=== PATIENT | male | born 1945 | race Caucasian/White ===

== ENCOUNTER → 2016-10-21 | Outpatient (CLI) | payer MEDICARE, OTHER ==
[2016-10-21 11:04] LABS: CH 29.7; CHCM 33.2; HCT 44.7 % (39.0-53.0); HDW 2.66; HGB 14.7 gm/dL (13.0-17.5); MCH 29.5 pg (25.0-35.0); MCHC 32.9 g/dL (31.0-37.0); MCV 89.6 fL (80.0-100.0); Mean Platelet Volume 7.5; RBC 4.99 m/uL (4.30-5.90); RDW 12.2 % (11.5-15.5); WBC 7.3 k/uL (3.8-10.6)
[2016-10-21 11:19] LABS: Anion Gap 10 mmol/L; Blood Urea Nitrogen 33 mg/dL (9-20); Carbon Dioxide 27 mmol/L (22-30); Chloride 100 mmol/L (98-107); Non-African American GFR(MDRD) 55 (>60 ml/min/1.73 sqM); Sodium 137 mmol/L (137-145)
[2016-10-21 11:28] LABS: Potassium 6.2 mmol/L (3.5-5.1)
== END | disposition home or self-care (01) ==
LOC: LABPAT 10:25
PROVIDERS: ATTEND Internal Medicine Interventional Cardiology
DX: Z01.812 Encounter for preprocedural laboratory examination (principal); I73.9 Peripheral vascular disease, unspecified
CPT/HCPCS: 36415; 80051; 82565; 84520; 85027

== ENCOUNTER → 2016-10-24 | Outpatient (CLI) | payer MEDICARE, OTHER ==
[2016-10-24 17:30] LABS: Anion Gap 11 mmol/L; Blood Urea Nitrogen 24 mg/dL (9-20); Carbon Dioxide 26 mmol/L (22-30); Chloride 102 mmol/L (98-107); Non-African American GFR(MDRD) 60 (>60 ml/min/1.73 sqM); Potassium 4.7 mmol/L (3.5-5.1); Sodium 139 mmol/L (137-145)
== END | disposition home or self-care (01) ==
LOC: LABWHC1 16:17
PROVIDERS: ATTEND Internal Medicine Interventional Cardiology
DX: E87.5 Hyperkalemia (principal)
CPT/HCPCS: 36415; 80051; 82565; 84520

== ENCOUNTER 2016-10-28 09:52 | Day surgery (SDC) | payer MEDICARE, OTHER ==
[2016-10-21 16:41] VITALS: BMI 25.8
[~2016-10-28 09:52] MED LIST: ASPIRIN 81 MG CHEW PO ONE; SODIUM CHLORIDE 0.9% 1,000 ML in EMPTY BAG 1 BAG IV ONE
[2016-10-28] MEDS ORDERED: ASPIRIN 81 MG CHEW PO ONE (10:15)
[2016-10-28 10:18] LABS: Glucose,Whole Blood 217 mg/dL (75-99)
[2016-10-28] MEDS ORDERED: ALPRAZolam 0.25 MG TAB PO ONE (10:21)
[2016-10-28] MEDS ORDERED: INSULIN LISPRO (humaLOG) 300 UNIT/3 ML VIAL SQ ONE ×3 (10:26→16:19)
[2016-10-28] MEDS ORDERED: MIDAZOLAM 2 MG/2 ML VIAL IVP ONE ×2 (10:50→11:12)
[2016-10-28] MEDS ORDERED: IV FLUID CONTINUATION 900 ML IV ONE (10:50)
[2016-10-28] MEDS ORDERED: LIDOCAINE 2% INJ 20 MG/ML SQ ONE (11:07)
[2016-10-28] MEDS ORDERED: IODIXANOL 320 MG/ML 100 ML INTRAARTER ONE (11:21)
[2016-10-28] MEDS ORDERED: SODIUM CHLORIDE 0.9% 1,000 ML IV SCH (11:30)
--- NOTE | 2016-10-28 13:56 | IR ---
Fluoroscopy HISTORY: Pain 1.9 minutes fluoroscopy time supplied to the referring clinician. 119 intraoperative C-arm images do cument the procedure. See dictated report from cardiology.
[2016-10-28 14:27] VITALS: PULSE 70
--- NOTE | 2016-10-28 14:41 | PCN ---
DATE OF PROCEDURE: October 28, 2016 Performing physician: Werner Woo M.D. cylinder batcher. PROCEDURE PERFORMED: 1. Abdominal aortogram. 2. Bilateral lower extremity runoff. INDICATION: This is a pleasant 70-year-old gentleman who was experiencing left leg discomfort consistent with intermittent claudication. He underwent an arterial duplex study which showed disease involving the femoral artery on the left side. Approach: Right common femoral artery. COMPLICATIONS: None. Level of sedation: Moderate. PROCEDURE DESCRIPTION: After obtaining informed consent, the patient was brought to the cardiac metallurgical lab technician. The right common femoral artery was cannulated using micropuncture technique, the micropuncture wire passed easily, then I placed 5 South Sudanese sheath in the right common femoral artery. Subsequently, I did an abdominal aortogram and bilateral lower extremity runoff using 5 [place]ese pigtail catheter which was initially placed at the level of the renal arteries and then it was pulled above the bifurcation of the aorta right and left common iliac arteries. The procedure was completed without any complication. SELECTIVE CORONARY ANGIOGRAM: 1. The aorta is has mild to moderate diffuse disease without any high-grade stenosis. 2. Common iliac arteries. The right common iliac artery has disease seems to be in the range of 50% and the left common iliac artery appeared to have mild disease only. 3. Internal iliac arteries: The right and left internal iliac arteries appeared to be patent. 4. External iliac arteries. The right and left external iliac arteries appeared to have mild disease only. 5. Common femoral artery. The right common femoral artery appeared to have mild disease only and the left common femoral artery appeared to have severe eccentric lesion that seems to be in the range of 70% to 80% and seems to be very focal. PROFUNDA: The right and left profunda are patent. SFA: The right and left SFA appeared to have mild diffuse disease only and they seem to be calcified. Popliteal: The right and left popliteal are angiographically normal. Below the knee: There are 3 vessels runoff below the knee bilaterally. CONCLUSION: 1. Mild to moderate aortoiliac disease. 2. Severe disease involving the left common femoral artery, which seems to have full critical eccentric calcified lesion. 3. Three vessel runoff below the knee bilaterally. POSTPROCEDURE MANAGEMENT: I feel that the patient will benefit from doing balloon angioplasty, atherectomy and balloon angioplasty of the left common femoral artery using directional atherectomy directed toward the plaque.
[2016-10-28 16:08] LABS: Glucose,Whole Blood 216 mg/dL (75-99)
[2016-10-28 17:27] VITALS: RESP 20
[2016-10-28 17:29] VITALS: BP 134/70
== END 2016-10-28 17:28 | disposition home or self-care (01) ==
LOC: CATHCVL 09:52
PROVIDERS: ATTEND Internal Medicine Interventional Cardiology
DX: I70.212 Atherosclerosis of native arteries of extremities with intermittent claudication, left leg (principal); I10 Essential (primary) hypertension; E78.2 Mixed hyperlipidemia; I25.5 Ischemic cardiomyopathy; I25.10 Atherosclerotic heart disease of native coronary artery without angina pectoris; E11.9 Type 2 diabetes mellitus without complications; Z79.84 Long term (current) use of oral hypoglycemic drugs; Z79.82 Long term (current) use of aspirin; Z79.899 Other long term (current) drug therapy; Z88.0 Allergy status to penicillin; Z88.2 Allergy status to sulfonamides; Z95.1 Presence of aortocoronary bypass graft; Z82.49 Family history of ischemic heart disease and other diseases of the circulatory system; Z85.46 Personal history of malignant neoplasm of prostate; J44.9 Chronic obstructive pulmonary disease, unspecified; Z87.891 Personal history of nicotine dependence
CPT/HCPCS: 36200; 75625; 75716; 99156; 99157; C1894; C1769 ×4; J2001; J2250; Q9967

== ENCOUNTER 2016-11-16 10:10 | Day surgery (SDC) | payer MEDICARE, OTHER ==
[2016-11-11 12:26] VITALS: BMI 25.2
[~2016-11-16 10:10] MED LIST changes: +ALPRAZolam 0.25 MG TAB PO PRN; +ASPIRIN 325 MG TAB PO STA; -ASPIRIN 81 MG CHEW PO ONE
[2016-11-16 10:37] LABS: Glucose,Whole Blood 220 mg/dL (75-99)
[2016-11-16] MEDS ORDERED: INSULIN LISPRO (humaLOG) 300 UNIT/3 ML VIAL SQ ONE (10:45)
[2016-11-16] MEDS ORDERED: MIDAZOLAM 2 MG/2 ML VIAL IVP ONE (12:32)
[2016-11-16] MEDS ORDERED: LIDOCAINE 2% INJ 20 MG/ML SQ ONE (12:41)
[2016-11-16] MEDS ORDERED: HEPARIN SODIUM 1,000 UNIT/ML VIAL IV ONE (12:48)
[2016-11-16] MEDS: MIDAZOLAM 2 MG/2 ML VIAL IVP ONE ×2 (12:48→12:59)
[2016-11-16] MEDS ORDERED: CLOPIDOGREL 75 MG TAB PO ONE (13:07)
[2016-11-16] MEDS ORDERED: niCARdipine Syringe (1,000 mcg/10 mL) INTRACORON ONE (13:23)
[2016-11-16] MEDS ORDERED: NITROGLYCERIN 1000MCG/10ML SYRINGE INTRACORON ONE (13:23)
[2016-11-16] MEDS ORDERED: IODIXANOL 320 MG/ML 100 ML INTRAARTER ONE ×2 (13:31)
[2016-11-16] MEDS ORDERED: HYDROcodone/APAP 7.5-325MG 1 EACH TAB PO PRN (13:34)
[2016-11-16] MEDS ORDERED: SODIUM CHLORIDE 0.9% 1,000 ML IV SCH (13:45)
[2016-11-16] MEDS ORDERED: IPRATROPIUM-ALBUTEROL 3 ML NEB INHALATION SCH (13:45)
[2016-11-16] MEDS ORDERED: IPRATROPIUM-ALBUTEROL 3 ML NEB INHALATION PRN (13:45)
[2016-11-16] MEDS ORDERED: ATROPINE SULFATE 0.1 MG/ML 10ML SYRINGE ONE (15:32)
[2016-11-16 16:48] LABS: Glucose,Whole Blood 145 mg/dL (75-99)
[2016-11-16 19:11] VITALS: RESP 18
[2016-11-16] MEDS ORDERED: FAMOTIDINE 20 MG TAB PO SCH (21:00)
[2016-11-16] MEDS ORDERED: ATORVASTATIN 20 MG TAB PO SCH (21:00)
[2016-11-16 21:14] LABS: Glucose,Whole Blood 215 mg/dL (75-99)
--- NOTE | 2016-11-16 21:56 | LTR ---
November 16, 2016 RE: Andrew Jung Dear Dr. Reynolds: Mr. Andrew Jung underwent successful atherectomy and balloon angioplasty of the left common femoral artery with a good angiographic result and without any complication. As you remember, he is a pleasant 71-year-old gentleman who sees Dr. Hill in the office as an outpatient, who was experiencing left leg discomfort consistent with claudication and underwent a peripheral angiogram a few weeks ago and that showed critical left femoral artery. Thank you for allowing me to participate in his care. Please do not hesitate to call with any questions or concerns. Sincerely, ALLISON GILL MD
--- NOTE | 2016-11-16 21:58 | PCN ---
DATE OF PROCEDURE: 11/16/2016 PERFORMING PHYSICIAN: Werner Woo M.D., fire lieutenant. PROCEDURES PERFORMED: 1. Selective left common femoral artery angiogram. 2. Atherectomy of the left common femoral artery using the TurboHawk device. 3. Successful angioplasty of the left common femoral artery using a 5.5 x 40 mm drug-coated balloon with good angiographic results. 4. Selective right common femoral artery angiogram. INDICATION: This is a pleasant 71-year-old gentleman who sees Dr. Hill as an outpatient who was experiencing left leg discomfort consistent with intermittent claudication. He underwent a peripheral angiogram which showed critical disease involving the left common femoral artery which seemed to be calcified with eccentric lesion. He was brought in today to undergo a CUSTOMER SERVICE TELLER of the left femoral artery. APPROACH: Right common femoral artery. COMPLICATIONS: None. LEVEL OF SEDATION: Moderate. PROCEDURE DESCRIPTION: After obtaining informed consent, the patient was brought to the cardiac clam bed laborer. The right common femoral artery was cannulated using micropuncture technique. The micropuncture wire passed easily. Then I placed a 6 Malaysian sheath of 11 cm in the right common femoral artery. Subsequently I did select the left SFA using a 5 Malaysian RIM catheter with 0.035 Advantage wire. Subsequently I exchanged my 11 cm 6 Malaysian sheath for a 55 cm sheath using the Advantage wire. Subsequently I exchanged my 11 cm 6 Malaysian sheath for a 55 cm 6 Malaysian sheath using the 0.035 Advantage wire where the tip of the long sheath was positioned in the left external iliac artery. After that I did selective left common femoral artery angiogram. I did that after I exchanged my 0.035 Advantage wire for an 0.014 Advantage wire. Subsequently I did multiple runs of directional atherectomy using the TurboHawk device and I was able to extract plaque from the left femoral artery. Subsequently I did balloon angioplasty, initially using a 6.0 x 40 mm AngioSculpt balloon, and then a 5.5 x 40 mm drug-coated balloon. The following angiogram showed decent angiographic results with a good flow. I was able to feel good pulse in the left dorsalis pedis. After that I exchanged my 55 cm 6 Malaysian sheath for an 11 cm 6 Malaysian sheath using the Advantage wire. Finally I did selective right common femoral artery angiogram before the procedure was ended. POST-PROCEDURE MANAGEMENT: 1. Dual antiplatelet therapy. 2. Statin. 3. Risk factor modifications. 4. Followup with the patient.
[2016-11-16] MEDS: LISINOPRIL 20 MG TAB PO SCH (23:08)
[2016-11-16] MEDS: METOPROLOL TARTRATE 12.5 MG TAB PO SCH (23:09)
[2016-11-16] MEDS: HYDROcodone/APAP 7.5-325MG 1 EACH TAB PO PRN (23:09)
[2016-11-17 06:20] LABS: Glucose,Whole Blood 196 mg/dL (75-99)
[2016-11-17 06:45] LABS: Non-African American GFR(MDRD) >60 (>60 ml/min/1.73 sqM)
[2016-11-17] MEDS ORDERED: PANTOPRAZOLE 40 MG TABLET PO SCH (07:30)
[2016-11-17] MEDS ORDERED: ASPIRIN 325 MG TAB PO SCH (09:00)
[2016-11-17] MEDS ORDERED: CLOPIDOGREL 75 MG TAB PO SCH (09:00)
[2016-11-17] MEDS ORDERED: ASPIRIN 81 MG CHEW PO SCH (09:00)
[2016-11-17] MEDS ORDERED: HYDROCHLOROTHIAZIDE 25 MG TAB PO SCH (09:00)
[2016-11-17] MEDS ORDERED: amLODIPine 5 MG TAB PO SCH (09:00)
[2016-11-17] MEDS: METOPROLOL TARTRATE 12.5 MG TAB PO SCH (09:21)
[2016-11-17] MEDS: LISINOPRIL 20 MG TAB PO SCH (09:21)
[2016-11-17] MEDS: HYDROcodone/APAP 7.5-325MG 1 EACH TAB PO PRN (09:29)
[2016-11-17 10:34] VITALS: BP 143/68; PULSE 71; TEMP 97.4
[2016-11-17 11:04] LABS: Anion Gap 10 mmol/L; Blood Urea Nitrogen 17 mg/dL (9-20); Calcium 9.6 mg/dL (8.4-10.2); Carbon Dioxide 24 mmol/L (22-30); Chloride 105 mmol/L (98-107); Glucose 192 mg/dL (74-99); Potassium 5.4 mmol/L (3.5-5.1); Sodium 139 mmol/L (137-145)
[2016-11-17 11:10] LABS: Basophils % (A) 1 %; CH 29.4; CHCM 32.2; Eosinophils # (A) 0.2 k/uL (0-0.7); Eosinophils % (A) 3 %; HCT 39.8 % (39.0-53.0); HDW 2.54; HGB 12.8 gm/dL (13.0-17.5); Luc % (Auto) 4; Lymphocytes # (A) 1.9 k/uL (1.0-4.8); Lymphocytes % (A) 36 %; MCH 29.5 pg (25.0-35.0); MCHC 32.2 g/dL (31.0-37.0); MCV 91.6 fL (80.0-100.0); Mean Platelet Volume 8.4; Monocytes # (A) 0.5 k/uL (0-1.0); Monocytes % (A) 10 %; Neutrophils # (A) 2.4 k/uL (1.3-7.7); Neutrophils % (A) 46 %; RBC 4.35 m/uL (4.30-5.90); RDW 12.4 % (11.5-15.5); WBC 5.3 k/uL (3.8-10.6); WBC (Perox) 5.48
--- NOTE | 2016-11-17 15:19 | IR ---
Fluoroscopy HISTORY: Pain 11.3 minutes fluoroscopy time supplied to the referring clinician. 177 intraoperative C-arm images d ocument the procedure. See dictated report from cardiology.
--- NOTE | 2016-11-18 22:07 | DS ---
DATE OF ADMISSION: 11/16/2016 DATE OF DISCHARGE: 11/17/2016 BRIEF HISTORY: This is a pleasant 71 -year-old gentleman who sees Dr. Hill as an outpatient, who was experiencing left leg discomfort consistent with intermittent claudication. He underwent peripheral angiogram two weeks ago and that showed critical disease involving the left common femoral artery with heavily calcified and eccentric lesion. He was admitted to the hospital and underwent successful atherectomy and balloon angioplasty of the left common femoral artery with a good angiographic results and reduction of stenosis from 99% to 40%. The procedure was performed from the right groin, which is soft and nontender and without any bruises. The patient is going to be discharged home on dual antiplatelet therapy and I will follow up as an outpatient next week in the office and then he will follow up with Dr. Hill after that.
== END 2016-11-17 11:15 | disposition home or self-care (01) ==
LOC: CATHCVL 10:10 → 6SEL 13:40 → CATHCVL 11-17 11:15
PROVIDERS: ATTEND Internal Medicine Interventional Cardiology
DX: I70.212 Atherosclerosis of native arteries of extremities with intermittent claudication, left leg (principal); E78.2 Mixed hyperlipidemia; E11.9 Type 2 diabetes mellitus without complications; Z79.84 Long term (current) use of oral hypoglycemic drugs; I10 Essential (primary) hypertension; Z82.49 Family history of ischemic heart disease and other diseases of the circulatory system; I25.5 Ischemic cardiomyopathy; Z87.891 Personal history of nicotine dependence; J44.9 Chronic obstructive pulmonary disease, unspecified; Z95.1 Presence of aortocoronary bypass graft; Z79.82 Long term (current) use of aspirin; Z79.899 Other long term (current) drug therapy; Z88.0 Allergy status to penicillin; Z88.2 Allergy status to sulfonamides
CPT/HCPCS: 94640; 37225; 80048; 85025; 99153 ×3; 99152; C1894 ×2; C1769 ×6; C1725; C1887; C1714; C2623; J2001; J2250; Q9967; J1644

== ENCOUNTER → 2018-02-16 | Outpatient (CLI) | payer MEDICARE ==
--- NOTE | 2018-02-16 14:04 | NM ---
EXAMINATION TYPE: NM bone scan whole body DATE OF EXAM: 02/16/2018 COMPARISON: NONE HISTORY: Arthritis Delayed whole-body scanning was performed following the injection of 23.7 mCi Tc 99m MDP. Images acq uired 3 hours post injection. Anterior posterior whole body images, bilateral obliques of the lumbar spine, anterior, posterior plantar, medial and lateral views of the feet and ankle are submitted. FINDINGS: Abnormal uptake is seen involving the shoulders, knees, ankles and feet post arthritic. Abnormal uptake involving the mid and lower thoracic spine and lumbar spine is low in intensity likel y degenerative. Nonspecific uptake involving the calvarium. IMPRESSION: Abnormal uptake involving the feet and ankles likely is post arthritic or degenerative. Correlate wit h x-ray.
== END | disposition home or self-care (01) ==
LOC: RADNMMAIN 09:59
PROVIDERS: ATTEND Podiatrist Foot & Ankle Surgery
DX: R94.8 Abnormal results of function studies of other organs and systems (principal); M12.0 Chronic postrheumatic arthropathy [Jaccoud]
CPT/HCPCS: 78306; A9503

== ENCOUNTER → 2018-03-27 | Outpatient (CLI) | payer MEDICARE ==
[2018-03-27 11:06] LABS: HCT 36.1 % (39.0-53.0); HGB 11.7 gm/dL (13.0-17.5); MCH 28.4 pg (25.0-35.0); MCHC 32.4 g/dL (31.0-37.0); MCV 87.5 fL (80.0-100.0); Mean Platelet Volume 7.3; Platelet Count 265 k/uL (150-450); RBC 4.13 m/uL (4.30-5.90); RDW 12.9 % (11.5-15.5); WBC 6.6 k/uL (3.8-10.6)
[2018-03-27 11:35] LABS: Potassium 6.2 mmol/L (3.5-5.1)
== END | disposition home or self-care (01) ==
LOC: LABPAT 10:51
PROVIDERS: ATTEND Internal Medicine Interventional Cardiology
DX: Z01.812 Encounter for preprocedural laboratory examination (principal); I73.9 Peripheral vascular disease, unspecified
CPT/HCPCS: 36415; 80051; 82565; 84520; 85027

== ENCOUNTER → 2018-04-13 | Outpatient (CLI) | payer MEDICARE ==
[2018-04-13 10:47] LABS: Potassium 4.9 mmol/L (3.5-5.1)
== END | disposition home or self-care (01) ==
LOC: LABPAT 10:03
PROVIDERS: ATTEND Internal Medicine Interventional Cardiology
DX: Z01.812 Encounter for preprocedural laboratory examination (principal); E87.5 Hyperkalemia; I25.5 Ischemic cardiomyopathy
CPT/HCPCS: 36415; 80051; 82565; 84520

== ENCOUNTER 2018-04-17 09:13 | Day surgery (SDC) | payer MEDICARE ==
[2018-03-27 16:27] VITALS: BMI 27.6
[2018-04-17] MEDS ORDERED: SODIUM CHLORIDE 0.9% 1,000 ML IV ONE (09:28)
[2018-04-17 09:44] VITALS: TEMP 98.2
[2018-04-17 09:48] LABS: Glucose,Whole Blood 158 mg/dL (75-99)
[2018-04-17] MEDS: MIDAZOLAM 2 MG/2 ML VIAL IVP ONE ×2 (11:45→11:50)
[2018-04-17] MEDS ORDERED: LIDOCAINE 1% (PF) 10MG/ML VIAL SQ ONE (11:46)
[2018-04-17] MEDS: VERAPAMIL SYRINGE (5 MG/10 ML) INTRAARTER ONE ×2 (11:48→12:05)
[2018-04-17] MEDS ORDERED: IOPAMIDOL-250 100ML BTL INTRAARTER ONE (12:05)
[2018-04-17] MEDS ORDERED: IOPAMIDOL-250 50ML BTL INTRAARTER ONE (12:05)
[2018-04-17] MEDS ORDERED: SODIUM CHLORIDE 0.9% 1,000 ML IV SCH (12:15)
--- NOTE | 2018-04-17 12:38 | LTR ---
April 17, 2018 Re: Andrew Jung Dear Dr. Reynolds Mr. Andrew Wells underwent a peripheral angiogram and that revealed severe disease involving the right iliac artery and left femoral artery. I am going to discuss the next step in management with the patient once I see him in the office. He needs to undergo stenting of the right iliac artery and patch angioplasty as well as endarterectomy for the left common femoral artery. I want to thank you for allowing me to participate in his care and please do not hesitate to call if you have any question or concern. Sincerely, MD HANNAH SquiresL / HIMANSHUN: [id number] /
--- NOTE | 2018-04-17 12:44 | AN ---
ANGIOGRAPHY REPORT DATE OF SERVICE: 04/17/2018 PERFORMING PHYSICIAN: Werner Woo MD, motion picture camera operator. PROCEDURE PERFORMED: 1. An abdominal aortogram. 2. Bilateral lower extremities runoff. INDICATION: This is a pleasant 72-year-old gentleman who sees Dr. Hill and sees Dr. Reynolds in the office as an outpatient with history of peripheral arterial disease where he underwent successful angioplasty of the left femoral artery back in 2016, was experiencing lately bilateral lower extremities intermittent claudication, worse on the left side. He did undergo an arterial duplex study in the office and that showed possible right iliac lesion and left femoral lesions. Because of that an abdominal aortogram and bilateral lower extremities runoff recommended. APPROACH: Right radial artery. COMPLICATION: None. LEVEL OF SEDATION: Moderate with sedation length of 20 minutes. PROCEDURE DESCRIPTION: After obtaining an informed consent, the patient was brought to cardiac engineering lab technician. The right radial artery was cannulated using micropuncture technique, the micropuncture wire passed easily then I placed a 5-Liberian sheath in the right radial artery. After that, I did an abdominal aortogram and bilateral lower extremities runoff using 4- Liberian pigtail catheter. The procedure was completed without any complication. SELECTIVE PERIPHERAL ANGIOGRAM: 1. The aorta is calcified with intermediate plaque in the midportion. 2. Common iliac arteries: The right and left common iliac arteries appear to have mild disease only. 3. Internal iliac arteries: The right and left internal iliac arteries are patent. 4. External iliac arteries: The right external iliac artery appeared to have a lesion in the range of 70% and seems to be calcified lesion. The left external iliac artery is angiographically normal. 5. Common femoral arteries: The right common femoral artery appeared to have mild disease only and the left common femoral artery just above the bifurcation has calcified lesion seems to be in the range of 70%. 6. Profunda: The right and left profunda are patent. 7. SFA: The right and left SFA appeared to have mild to moderate diffuse disease. 8. Popliteal: The right and left popliteal appeared to have mild disease only. 9. Below the knee: There are 3 vessels runoff below the knee bilaterally. CONCLUSION: 1. Severe disease involving the right external iliac artery. 2. Severe disease involving the left common femoral artery. POSTPROCEDURE MANAGEMENT: For the right iliac artery, the patient will benefit from balloon angioplasty and stenting. For the left common femoral artery, the patient will benefit from endarterectomy and patch angioplasty. I will discuss the disease with him once I see him in the office and what is the next step as well. MARY / HIMANSHUN: [id number] /
[2018-04-17 14:46] VITALS: PULSE 59
[2018-04-17 19:32] VITALS: BP 145/70; RESP 18
--- NOTE | 2018-04-19 08:46 | IR ---
Fluoroscopy HISTORY: Pain in left foot 4.2 minutes fluoroscopy time supplied to the referring clinician. 82 intraoperative C-arm images doc ument the procedure. See dictated report from cardiology.
== END 2018-04-17 17:15 | disposition home or self-care (01) ==
LOC: CATHCVL 09:13
PROVIDERS: ATTEND Internal Medicine Interventional Cardiology
DX: E13.51 Other specified diabetes mellitus with diabetic peripheral angiopathy without gangrene (principal); Z79.84 Long term (current) use of oral hypoglycemic drugs; I10 Essential (primary) hypertension; E78.5 Hyperlipidemia, unspecified; Z82.49 Family history of ischemic heart disease and other diseases of the circulatory system; Z95.1 Presence of aortocoronary bypass graft; Z87.891 Personal history of nicotine dependence; Z79.02 Long term (current) use of antithrombotics/antiplatelets; Z79.82 Long term (current) use of aspirin; Z79.899 Other long term (current) drug therapy; Z88.0 Allergy status to penicillin; Z88.2 Allergy status to sulfonamides
CPT/HCPCS: 36200; 75625; 75716; C1894; J2250; J2001; J1644; Q9966 ×2

== ENCOUNTER 2018-06-29 09:29 | Day surgery (SDC) | payer MEDICARE, OTHER ==
[~2018-06-29 09:29] MED LIST changes: -ALPRAZolam 0.25 MG TAB PO PRN
[2018-06-29] MEDS: ALPRAZolam 0.25 MG TAB PO PRN ×2 (10:00→23:42)
[2018-06-29] MEDS ORDERED: SODIUM CHLORIDE 0.9% 1,000 ML IV ONE (10:13)
[2018-06-29 10:16] LABS: Basophils # (A) 0.1 k/uL (0-0.2); Basophils % (A) 1 %; Eosinophils # (A) 0.2 k/uL (0-0.7); Eosinophils % (A) 4 %; HCT 38.6 % (39.0-53.0); HGB 12.8 gm/dL (13.0-17.5); Lymphocytes # (A) 2.1 k/uL (1.0-4.8); Lymphocytes % (A) 31 %; MCH 27.3 pg (25.0-35.0); MCHC 33.2 g/dL (31.0-37.0); MCV 82.3 fL (80.0-100.0); Mean Platelet Volume 7.3; Monocytes # (A) 0.7 k/uL (0-1.0); Monocytes % (A) 10 %; Neutrophils # (A) 3.6 k/uL (1.3-7.7); Neutrophils % (A) 52 %; Platelet Count 280 k/uL (150-450); RBC 4.69 m/uL (4.30-5.90); RDW 13.1 % (11.5-15.5); WBC 6.9 k/uL (3.8-10.6)
[2018-06-29 10:21] LABS: Glucose,Whole Blood 165 mg/dL (75-99)
[2018-06-29 10:26] LABS: Anion Gap 8 mmol/L; Blood Urea Nitrogen 24 mg/dL (9-20); Calcium 10.2 mg/dL (8.4-10.2); Carbon Dioxide 28 mmol/L (22-30); Chloride 103 mmol/L (98-107); Glucose 172 mg/dL (74-99); Sodium 139 mmol/L (137-145)
[2018-06-29] MEDS ORDERED: ENALAPRILAT 1.25 MG/ML 1 ML VIAL IVP STA (10:27)
[2018-06-29] MEDS ORDERED: ENALAPRILAT 1.25 MG/ML 1 ML VIAL ONE (10:28)
[2018-06-29] MEDS ORDERED: MIDAZOLAM 2 MG/2 ML VIAL IV ONE (12:37)
[2018-06-29] MEDS ORDERED: LIDOCAINE 1% INJ 10MG/ML (20 ML MDV) SQ ONE (12:43)
[2018-06-29] MEDS ORDERED: niCARdipine 25 MG/10 ML VIAL ONE (12:46)
[2018-06-29] MEDS ORDERED: SODIUM CHLORIDE 0.9% (PF) 10 ML VIAL ONE (12:46)
[2018-06-29] MEDS ORDERED: HEPARIN SODIUM 1,000 UN/ML (10ML VL) IV ONE (12:47)
[2018-06-29] MEDS ORDERED: IOPAMIDOL-370 100ML BTL INJ ONE (13:24)
[2018-06-29] MEDS ORDERED: SODIUM CHLORIDE 0.9% 1,000 ML IV SCH (13:30)
[2018-06-29] MEDS ORDERED: HYDROcodone/APAP 7.5-325MG 1 EACH TAB PO ONE (13:43)
--- NOTE | 2018-06-29 13:54 | LTR ---
DATE OF SERVICE: June 29, 2018 RE: Andrew Jung Dear Dr. Reynolds; Mr. Andrew Jung was brought today to undergo stenting of his right common iliac artery, but we found that the lesion was not hemodynamically significant. Because of that, the stent was aborted and maximize medical treatment is advised. Thank you for allowing us to participate in his care and please do not hesitate to call if you have any question or concern. Sincerely, MD MARY Squires / HIMANSHUN: [id number] /
--- NOTE | 2018-06-29 14:15 | AN ---
ANGIOGRAPHY REPORT DATE OF SERVICE: 06/29/2018 PERFORMING PHYSICIAN: Werner Woo MD, Can Reconditioner. PROCEDURE PERFORMED: 1. Selective right common iliac artery angiogram. 2. Intravascular ultrasound IVUS of the right common iliac artery. 3. Pressure gradient measurement across the right common iliac artery. 4. Selective right common femoral artery angiogram. INDICATION: This is a very pleasant 72-year-old gentleman who sees Dr. Reynolds as well as Dr. Hill in the office as an outpatient who was experiencing bilateral lower extremities intermittent claudication and underwent a peripheral angiogram and that revealed severe disease involving the right common iliac artery and severe disease involving the left common femoral artery. The decision was made towards percutaneous peripheral intervention of the right common iliac artery and surgical revascularization of the left common femoral artery. He was brought today to undergo an intervention on the right common iliac artery. APPROACH: Right common femoral artery. COMPLICATION: None. LEVEL OF SEDATION: Moderate with sedation length of 18 minutes. PROCEDURE DESCRIPTION: After obtaining an informed consent, the patient was brought to the cardiac clinical laboratory medical director. The right common femoral artery was cannulated using micropuncture technique, the micropuncture wire passed easily, then I placed a 6-Amharic sheath 23 cm Brite Tip in the right common femoral artery. The tip of the sheath was positioned in the right common iliac artery. I did multiple selective pictures of the right common iliac artery, which revealed that the lesion we were going to stent was not significant. Because of that, I did intravascular ultrasound which revealed a stenosis percentage of 67%. Beside that, I did gradient measurement across the lesion and that came in to be 18 mmHg, which is less than 20 mmHg. Because of that, I decided to abort stenting of the right common iliac artery. The procedure was completed without any complication. POSTPROCEDURE MANAGEMENT: 1. Follow up with the patient. 2. Assess for surgical revascularization in the left common femoral artery. MMODL / IJN: [id number] /
[2018-06-29 15:05] VITALS: BMI 26.4
[2018-06-29] MEDS ORDERED: ATROPINE SULFATE 0.1 MG/ML 10ML SYRINGE ONE (15:45)
--- NOTE | 2018-06-29 16:22 | IR ---
EXAMINATION TYPE: IR angio extremity RT, fluoroscopy support DATE OF EXAM: 06/29/2018 HISTORY: Peripheral vascular occlusive disease Fluoroscopy support supplied to the referring clinician. See dictated report from cardiology, 47 int raoperative images document the procedure, 3 minutes fluoroscopy time
[2018-06-29 16:45] LABS: Glucose,Whole Blood 187 mg/dL (75-99)
[2018-06-29 19:50] VITALS: RESP 18
[2018-06-29 21:23] LABS: Glucose,Whole Blood 281 mg/dL (75-99)
[2018-06-30] MEDS: INSULIN ASPART 100 UNIT/ML 1 ML 10 ML VIAL SQ SCH ×2 (00:15→06:52)
[2018-06-30] MEDS: amLODIPine 5 MG TAB PO SCH ×2 (00:30→08:07)
[2018-06-30 06:37] LABS: Glucose,Whole Blood 193 mg/dL (75-99)
[2018-06-30] MEDS ORDERED: INSULIN ASPART 100 UNIT/ML 1 ML 10 ML VIAL SQ SCH (07:30)
--- NOTE | 2018-06-30 07:49 | DS ---
DISCHARGE SUMMARY ADMISSION DATE: June 29, 2018 DISCHARGE DATE: June 30, 2018 BRIEF HISTORY: This is a very pleasant 72-year-old gentleman who sees Dr. Hill in the office as an outpatient with known history of peripheral arterial disease who was experiencing bilateral lower extremities intermittent claudication and underwent a peripheral angiogram a few weeks ago and that revealed severe disease involving the right external iliac artery and severe disease involving the left common femoral artery. He was brought yesterday to undergo stenting of the right external iliac artery. By doing selective injection, the lesion did not appear to be severe enough for revascularization. I did perform an intravascular ultrasound IVUS of the right external iliac artery and that showed stenosis percentage of 67%. I did also a pressure gradient across it and that came into be at 18 mmHg, which is below 20 mmHg which is not flow-limiting yet. Because of that, the right iliac stenting procedure was aborted and we decided to treat him medically. On follow up with him today, he is doing good. He is sitting in bed, eating his breakfast. The right groin is soft and nontender and without any bruises. The patient is going to be discharged home later on today. MMODL / IJN: [id number] /
[2018-06-30 08:18] VITALS: BP 142/60; PULSE 65; TEMP 96.7
[2018-06-30] MEDS ORDERED: amLODIPine 5 MG TAB PO SCH (09:00)
== END 2018-06-30 09:43 | disposition home or self-care (01) ==
LOC: CATHCVL 09:29 → 6SEL 13:10 → CATHCVL 06-30 09:43
PROVIDERS: ATTEND Internal Medicine Interventional Cardiology
DX: I70.213 Atherosclerosis of native arteries of extremities with intermittent claudication, bilateral legs (principal); E11.9 Type 2 diabetes mellitus without complications; I10 Essential (primary) hypertension; E78.2 Mixed hyperlipidemia; I25.5 Ischemic cardiomyopathy; F17.210 Nicotine dependence, cigarettes, uncomplicated; Z95.1 Presence of aortocoronary bypass graft; Z79.84 Long term (current) use of oral hypoglycemic drugs; Z79.02 Long term (current) use of antithrombotics/antiplatelets; Z79.82 Long term (current) use of aspirin; Z79.899 Other long term (current) drug therapy; Z82.49 Family history of ischemic heart disease and other diseases of the circulatory system; Z88.1 Allergy status to other antibiotic agents; Z88.0 Allergy status to penicillin; Z88.2 Allergy status to sulfonamides
CPT/HCPCS: 36200; 75710; 37252; 80048; 85025; C1769 ×5; C1887; C1894; C1753; J2250; J2001; J1644; Q9967

== ENCOUNTER → 2019-01-11 | Outpatient (CLI) | payer MEDICARE, OTHER ==
--- NOTE | 2019-01-16 12:50 | P.ARTDOP ---
Arterial Doppler LOWER EXTREMITY ARTERIAL DOPPLER: DATE OF SERVICE: 01/11/2019 Reason for study: Bilateral leg pain. Doppler waveforms: Atypical bilaterally throughout. Pulse volume recording: Minimal blunting throughout bilaterally. Pressure gradients: Above the knee on the left and below the knee on the right. Ankle-brachial indices: 0.85 on the right and 0.7 on the left. Toe pressures: 95 on the right, 57 on the left Impression: Mild right fem-pop disease. Moderate left fem-pop disease with possible iliac component.
== END | disposition home or self-care (01) ==
LOC: RADUSWWP 13:54
PROVIDERS: ATTEND Family Medicine
DX: I77.89 Other specified disorders of arteries and arterioles (principal)
CPT/HCPCS: 93923

== ENCOUNTER 2019-03-25 13:52 | Inpatient (IN) | payer MEDICARE, OTHER ==
[2019-03-25] MEDS ORDERED: MORPHINE SULFATE 2 MG/ML SYRINGE IVP STA (14:10)
[2019-03-25] MEDS ORDERED: MORPHINE SULFATE 2 MG/ML SYRINGE IVP PRN (14:10)
[2019-03-25] MEDS ORDERED: SODIUM CHLORIDE 0.9% 1,000 ML IV STA (14:10)
[2019-03-25] MEDS ORDERED: IPRATROPIUM-ALBUTEROL 3 ML NEB INHALATION STA (14:10)
[2019-03-25] MEDS ORDERED: KETOROLAC 30 MG/ML 1 ML VIAL IVP STA (14:10)
--- NOTE | 2019-03-25 14:14 | ED ---
SOB HPI - General Chief Complaint: Shortness of Breath Stated Complaint: SOB Time Seen by Provider: 03/25/19 14:06 Source: patient, RN notes reviewed, old records reviewed Mode of arrival: wheelchair Limitations: no limitations - History of Present Illness Initial Comments: This is a 73-year-old male the ER for evaluation presents today for evaluation s hortness of breath history of asthma. Does have history of underlying heart disease as well. Patient CT is increasing shortness of breath for 3 days maybe some fever and chills but no documented fever. Increased cough and congestion. No chest pain. No modifying factors for symptoms at home patient says he is also had this cough for about 2 weeks he states the cough is causing him some left-sided rib pain no trauma but also complaining of left-sided rib pain chest pain MD Complaint: shortness of breath, cough, chest pain -: week(s) Severity: moderate Severity scale (1-10): 7 Quality: dull Consistency: constant Improves With: oxygen Worsens With: exertion, coughing Known History Of: COPD, congestive heart failure Context: recent URI Associated Symptoms: chest pain, cough, sputum production Treatments Prior to Arrival: none - Related Data Home Medications Medication Instructions Recorded Confirmed Aspirin EC [Ecotrin Low Dose] 81 mg PO DAILY 02/03/14 03/25/19 Atorvastatin [Lipitor] 20 mg PO HS 02/03/14 03/25/19 Hydrocodone/Acetaminophen 1 tab PO DAILY PRN 02/03/14 03/25/19 [Hydrocodone/Acetaminophen 7.5-325] Omeprazole [PriLOSEC] 20 mg PO AC-BRKFST 02/03/14 03/25/19 Ipratropium/Albuterol Sulfate 1 puff INHALATION RT-QID PRN 02/05/14 03/25/19 [Combivent Respimat Inhaler] Ipratropium-Albuterol Nebulize 3 ml INHALATION RT-QID 05/02/16 03/25/19 [Duoneb 0.5 mg-3 mg/3 ml Soln] Ranitidine HCl [Zantac] 150 mg PO BID 05/02/16 03/25/19 Metoprolol Tartrate [Lopressor] 12.5 mg PO BID 09/27/16 03/25/19 amLODIPine [Norvasc] 5 mg PO DAILY 10/21/16 03/25/19 Insulin Detemir (Levemir) [Levemir] 25 unit SQ QAM 03/27/18 03/25/19 Hydrochlorothiazide [Hydrodiuril] 25 mg PO DAILY 03/25/19 03/25/19 metFORMIN HCL 500 mg PO DAILY 03/25/19 03/25/19 Allergies Allergy/AdvReac Type Severity Reaction Status Date / Time Penicillins Allergy Rash/Hives Verified 03/25/19 14:20 hydralazine AdvReac Nausea & Verified 03/25/19 14:20 Vomiting methylprednisolone AdvReac ELEVATED Verified 03/25/19 14:20 [From Medrol] BLOOD GLUCOSE TO 600 sulfamethoxazole AdvReac Nausea & Verified 03/25/19 14:20 [From Bactrim] Vomiting & Diarrhea trimethoprim [From Bactrim] AdvReac Nausea & Verified 03/25/19 14:20 Vomiting & Diarrhea Review of Systems ROS Statement: Those systems with pertinent positive or pertinent negative responses have been documented in the HPI. ROS Other: All systems not noted in ROS Statement are negative. Past Medical History Past Medical History: Coronary Artery Disease (CAD), Cancer, COPD, CVA/TIA, Diabetes Mellitus, GERD/Reflux, Hyperlipidemia, Hypertension, Myocardial Infarction ([place]), Osteoarthritis (OA) Additional Past Medical History / Comment(s): [place] X3, TIA, EMPHYSEMA, CHRONIC BR ONCHITIS, DON'S ESOPHAGUS, HIATAL HERNIA, PROSTATE CA 2008, PEPTIC ULCER DISEASE. pain w/walking Last Myocardial Infarction Date:: 2009 History of Any Multi-Drug Resistant Organisms: None Reported Past Surgical History: Cholecystectomy, Coronary Bypass/CABG, Heart Catheterization, Hernia Repair, Orthopedic Surgery, Prostate Surgery Additional Past Surgical History / Comment(s): CABG-3VESSEL 2002, PROSTATECTOMY (2008), LAST HEART CATH 2014 ( NO STENTS)., INGUINAL & ABD HERNIA WITH MESH. EGD, COLONOSCOPY. ARTHROSCOPY LEFT KNEE., BILAT CATARACTS, abd. aortogram. Past Anesthesia/Blood Transfusion Reactions: Family History of Problems w/ Anesthesia Additional Past Anesthesia/Blood Transfusion Reaction / Comment(s): PTS MOTHER DIFFICULTLY PUTTING HER TO SLEEP AND SHE HAD SEIZURE? Past Psychological History: No Psychological Hx Reported Smoking Status: Former smoker Past Alcohol Use History: None Reported Past Drug Use History: None Reported - Past Family History Sister(s) Family Medical History: Cancer Additional Family Medical History / Comment(s): BRAIN TUMOR- INOPERABLE Father Family Medical History: Cancer, CVA/TIA Additional Family Medical History / Comment(s): PROSTATE CA, CVA x19 Mother Family Medical History: Cancer Additional Family Medical History / Comment(s): UNKNOWN KIND General Exam Limitations: no limitations General appearance: alert, in no apparent distress Head exam: Present: atraumatic, normocephalic, normal inspection Eye exam: Present: normal appearance, PERRL, EOMI. Absent: scleral icterus, conjunctival injection, periorbital swelling ENT exam: Present: normal exam, mucous membranes moist Neck exam: Present: normal inspection. Absent: tenderness, meningismus, lymphadenopathy Respiratory exam: Present: normal lung sounds bilaterally, wheezes, rales, accessory muscle use, decreased breath sounds, prolonged expiratory. Absent: respiratory distress, rhonchi, stridor Cardiovascular Exam: Present: regular rate, normal rhythm, normal heart sounds. Absent: systolic murmur, diastolic murmur, rubs, gallop, clicks GI/Abdominal exam: Present: soft, normal bowel sounds. Absent: distended, tenderness, guarding, rebound, rigid Extremities exam: Present: normal inspection, full ROM, normal capillary refill. Absent: tenderness, pedal edema, joint swelling, calf tenderness Back exam: Present: normal inspection Neurological exam: Present: alert, oriented X3, CN II-XII intact Psychiatric exam: Present: normal affect, normal mood Skin exam: Present: warm, dry, intact, normal color. Absent: rash Course Vital Signs 03/25/19 03/25/19 03/25/19 13:56 14:07 14:08 Temperature 97.9 F Pulse Rate 79 Respiratory 16 Rate Blood Pressure 155/66 177/87 O2 Sat by Pulse 99 91 L 99 Oximetry 03/25/19 03/25/19 03/25/19 14:09 14:10 14:11 Temperature Pulse Rate 76 Respiratory 18 Rate Blood Pressure 177/87 177/87 177/87 O2 Sat by Pulse 96 98 93 L Oximetry 03/25/19 03/25/19 03/25/19 14:12 14:13 14:24 Temperature Pulse Rate 75 79 75 Respiratory 27 H 21 Rate Blood Pressure 177/87 177/87 O2 Sat by Pulse 96 100 Oximetry 03/25/19 03/25/19 03/25/19 14:30 14:41 15:00 Temperature Pulse Rate 79 Respiratory 15 Rate Blood Pressure 177/87 138/67 O2 Sat by Pulse 100 Oximetry 03/25/19 03/25/19 15:30 16:00 Temperature Pulse Rate 80 80 Respiratory 18 16 Rate Blood Pressure 138/67 150/82 O2 Sat by Pulse 97 98 Oximetry - Reevaluation(s) Reevaluation #1: 03/25/19 16:52 Medical record is reviewed Reevaluation #2: 03/25/19 16:52 Patient still having chest pain, shortness of breath with cough and congestion, mildly improvement with breathing treatment Medical Decision Making - Medical Decision Making 23 male the ER for evaluation shortness of breath CHF on top of COPD with underlying pneumonia. Will admit 5 Anaprox breathing treatments and monitoring of cardiopulmonary status - Lab Data Result diagrams: 03/25/19 14:11 03/25/19 14:11 Lab Results 03/25/19 03/25/19 03/25/19 Range/Units 14:11 14:11 14:11 WBC 9.9 (3.8-10.6) k/uL RBC 4.30 (4.30-5.90) m/uL Hgb 8.4 L (13.0-17.5) gm/dL Hct 28.8 L (39.0-53.0) % MCV 67.0 L (80.0-100.0) fL MCH 19.5 L (25.0-35.0) pg MCHC 29.1 L (31.0-37.0) g/dL RDW 15.4 (11.5-15.5) % Plt Count 358 (150-450) k/uL Neutrophils % 62 % Lymphocytes % 24 % Monocytes % 8 % Eosinophils % 2 % Basophils % 0 % Neutrophils # 6.1 (1.3-7.7) k/uL Lymphocytes # 2.3 (1.0-4.8) k/uL Monocytes # 0.8 (0-1.0) k/uL Eosinophils # 0.2 (0-0.7) k/uL Basophils # 0.0 (0-0.2) k/uL Hypochromasia Marked Poikilocytosis Slight Microcytosis Marked PT 10.2 (9.0-12.0) sec INR 0.9 (<1.2) APTT 22.3 (22.0-30.0) sec Sodium 138 (137-145) mmol/L Potassium 4.8 (3.5-5.1) mmol/L Chloride 103 (98-107) mmol/L Carbon Dioxide 23 (22-30) mmol/L Anion Gap 12 mmol/L BUN 15 (9-20) mg/dL Creatinine 1.14 (0.66-1.25) mg/dL Est GFR (CKD-EPI)AfAm 74 (>60 ml/min/1.73 sqM) Est GFR (CKD-EPI)NonAf 64 (>60 ml/min/1.73 sqM) Glucose 190 H (74-99) mg/dL Calcium 10.0 (8.4-10.2) mg/dL Magnesium 1.4 L (1.6-2.3) mg/dL Total Bilirubin 0.7 (0.2-1.3) mg/dL AST 18 (17-59) U/L ALT 13 L (21-72) U/L Alkaline Phosphatase 79 (38-126) U/L Troponin I (0.000-0.034) ng/mL NT-Pro-B Natriuret Pep pg/mL Total Protein 7.0 (6.3-8.2) g/dL Albumin 4.1 (3.5-5.0) g/dL 03/25/19 03/25/19 Range/Units 14:11 14:11 WBC (3.8-10.6) k/uL RBC (4.30-5.90) m/uL Hgb (13.0-17.5) gm/dL Hct (39.0-53.0) % MCV (80.0-100.0) fL MCH (25.0-35.0) pg MCHC (31.0-37.0) g/dL RDW (11.5-15.5) % Plt Count (150-450) k/uL Neutrophils % % Lymphocytes % % Monocytes % % Eosinophils % % Basophils % % Neutrophils # (1.3-7.7) k/uL Lymphocytes # (1.0-4.8) k/uL Monocytes # (0-1.0) k/uL Eosinophils # (0-0.7) k/uL Basophils # (0-0.2) k/uL Hypochromasia Poikilocytosis Microcytosis PT (9.0-12.0) sec INR (<1.2) APTT (22.0-30.0) sec Sodium (137-145) mmol/L Potassium (3.5-5.1) mmol/L Chloride (98-107) mmol/L Carbon Dioxide (22-30) mmol/L Anion Gap mmol/L BUN (9-20) mg/dL Creatinine (0.66-1.25) mg/dL Est GFR (CKD-EPI)AfAm (>60 ml/min/1.73 sqM) Est GFR (CKD-EPI)NonAf (>60 ml/min/1.73 sqM) Glucose (74-99) mg/dL Calcium (8.4-10.2) mg/dL Magnesium (1.6-2.3) mg/dL Total Bilirubin (0.2-1.3) mg/dL AST (17-59) U/L ALT (21-72) U/L Alkaline Phosphatase (38-126) U/L Troponin I 0.020 (0.000-0.034) ng/mL NT-Pro-B Natriuret Pep 1680 pg/mL Total Protein (6.3-8.2) g/dL Albumin (3.5-5.0) g/dL - EKG Data -: EKG Interpreted by Me (EKG shows sinus rhythm rate of 80, MA 136, QRS 04, QTc 40 to) - Radiology Data Radiology results: report reviewed (Chest x-rays positive for pneumonia underlying CHF), image reviewed Disposition Clinical Impression: Dyspnea, Chest pain, Acute exacerbation of chronic obstructive airways disease, Community acquired pneumonia, Acute pulmonary edema Disposition: ADMITTED IP TO THIS HOSP Condition: Fair Is patient prescribed a controlled substance at d/c from ED?: No Referrals: Aly Reynolds MD [Primary Care Provider] - 1-2 days
[2019-03-25 14:25] LABS: Basophils % (A) 0 %; Eosinophils # (A) 0.2 k/uL (0-0.7); Eosinophils % (A) 2 %; HCT 28.8 % (39.0-53.0); HGB 8.4 gm/dL (13.0-17.5); Hypochromasia Marked; Lymphocytes # (A) 2.3 k/uL (1.0-4.8); Lymphocytes % (A) 24 %; MCH 19.5 pg (25.0-35.0); MCHC 29.1 g/dL (31.0-37.0); Mean Platelet Volume 6.3; Microcytosis Marked; Monocytes # (A) 0.8 k/uL (0-1.0); Monocytes % (A) 8 %; Neutrophils # (A) 6.1 k/uL (1.3-7.7); Neutrophils % (A) 62 %; Platelet Count 358 k/uL (150-450); Poikilocytosis Slight; RDW 15.4 % (11.5-15.5); WBC 9.9 k/uL (3.8-10.6)
[2019-03-25 14:39] LABS: INR 0.9 (<1.2); Partial Thromboplastin Time 22.3 sec (22.0-30.0); Prothrombin Time 10.2 sec (9.0-12.0)
[2019-03-25 14:49] LABS: Albumin 4.1 g/dL (3.5-5.0); Magnesium 1.4 mg/dL (1.6-2.3); Potassium 4.8 mmol/L (3.5-5.1); Total Bilirubin 0.7 mg/dL (0.2-1.3)
--- NOTE | 2019-03-25 15:21 | XR ---
EXAMINATION TYPE: XR chest 2V DATE OF EXAM: 03/25/2019 COMPARISON: Prior chest x-ray dated 08/16/2014 HISTORY: Difficulty breathing TECHNIQUE: Frontal and lateral views of the chest are obtained. FINDINGS: Prominent lung lines with flattening the hemidiaphragms suggestive of underlying COPD is ag ain noted. Patient is post median sternotomy. There are patchy densities bilaterally, there is fullne ss of the right hilum. There is no pleural effusion or pneumothorax seen. The cardiac silhouette siz e is stable accounting for technique, patient is rotated. The osseous structures are intact. There are overlying cardiac leads. IMPRESSION: Areas of probable scarring noted, difficult to exclude superimposed pneumonia abnormal d ensities within the lungs however. There is abnormal increased density right hilar region. Correlate for pneumonia and follow-up recommended, consider chest CT.
[2019-03-25] MEDS ORDERED: AZITHROMYCIN 500 MG in SODIUM CHLORIDE 0.9% 250 ML IVPB STA (16:47)
[2019-03-25] MEDS ORDERED: PNEUMONIA PROTOCOL UTILIZED 1 EACH MISC PO PRN (16:47)
[2019-03-25] MEDS ORDERED: ASPIRIN 325 MG TAB PO STA (16:47)
[2019-03-25] MEDS ORDERED: ALBUTEROL NEBULIZED 2.5 MG/3 ML INHALATION PRN (16:47)
[2019-03-25] MEDS: MAGNESIUM SULFATE-D5W PMX 1 GM in DEXTROSE/WATER 1 100ML.BAG IVPB SCH ×2 (17:57→19:00)
[2019-03-25] MEDS ORDERED: IPRATROPIUM-ALBUTEROL 3 ML NEB INHALATION SCH (20:00)
[2019-03-25] MEDS ORDERED: FUROSEMIDE 10 MG/ML 4 ML VIAL IV SCH (21:00)
[2019-03-25] MEDS: ATORVASTATIN 80 MG TAB PO SCH (21:05)
--- NOTE | 2019-03-25 23:33 | P.HPIM ---
History of Present Illness H&P Date: 03/25/19 Chief Complaint: Shortness of breath History of presenting complaint: This is a pleasant 73-year-old patient who follows with Dr. Orona. Chronic stable medical conditions include coronary artery disease, diabetes, GERD, hypertension, hyperlipidemia, osteoarthritis but is esophagus hiatal hernia and peptic ulcer disease. Patient felt to be set being short of breath with some yellow sputum no fever or chills, wheezing no edema. Patient did see Dr. Aguilar did receive a course of antibiotic do not get any better. Symptoms have persisted. Decided to come in. This no chest pain or palpitation. Review of systems: GEN.: Tired EYES: None HEENT: None NECK: None RESPIRATORY: As above CARDIOVASCULAR: None GASTROINTESTINAL: Some reflux GENITOURINARY: None MUSCULOSKELETAL: Pain in the joints LYMPHATICS: None HEMATOLOGICAL: None PSYCHIATRY: None NEUROLOGICAL: None Social history: Smokes a pack and a half a day for close to 40 years. Stopped in 2002. No alcohol. . Worked at [employer]. 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 Physical examination: VITAL SIGNS: 97.9, 79, 22, 1 55 /66, 99% room air GENERAL: Average built, propped up short of breath. EYES: Pupils equal. Conjunctiva normal. HEENT: External appearance of nose and ears normal, oral cavity grossly normal. NECK: JVD not raised; masses not palpable. HEART: First and second heart sounds are normal; no edema. LUNGS: Respiratory rate increased, decreased breath sounds prolonged expiration and some expiratory crackles. ABDOMEN: Soft, nontender, liver spleen not palpable, no masses palpable. LYMPHATICS: No lymph nodes palpable in the axilla and neck. PSYCH: [Alert and oriented x3; mood and affect anxious l. NEUROLOGICAL: Cranial nerves grossly intact; no facial asymmetry, power and sensation grossly intact. Investigations: Reviewed in the clinical context White count 9.9 hemoglobin 8.4 platelets 358 potassium 4.8 BUN 15 creatinine 1.14 Troponin I 0.020, 0.016, proBNP 1680 EKG tracing personally reviewed by me shows left bundle branch block Chest x-ray film personally reviewed by me shows possible infiltrate Assessment: -Acute COPD exacerbation in ex-smoker having failed outpatient treatment -Probable pneumonia having failed outpatient treatment, suspected gram-negative organism -Coronary artery disease with a prior history of coronary bypass 3 vessels in 2 003 neck diabetes mellitus type 2 on oral hypoglycemic GERD Hyperlipidemia Essential hypertension Primary osteoarthritis -Don's esophagus -Hiatal hernia Plan: Patient started on nebulized bronchodilators every 4 hours, IV Solu-Medrol, and his steroids. Home medications are resumed. Lovenox for DVT prophylaxis. Also get IV ceftriaxone in form of antibiotic. Care was discussed with the patient and questions answered. Will consult Dr. Aguilar Past Medical History Past Medical History: Coronary Artery Disease (CAD), Cancer, COPD, CVA/TIA, Diabetes Mellitus, GERD/Reflux, Hyperlipidemia, Hypertension, Myocardial Infarction ([place]), Osteoarthritis (OA) Additional Past Medical History / Comment(s): [place] X3, TIA, EMPHYSEMA, CHRONIC BRONCHITIS, DON'S ESOPHAGUS, HIATAL HERNIA, PROSTATE CA 2008, PEPTIC ULCER DISEASE. pain w/walking Last Myocardial Infarction Date:: 2009 History of Any Multi-Drug Resistant Organisms: None Reported Past Surgical History: Cholecystectomy, Coronary Bypass/CABG, Heart Catheterization, Hernia Repair, Orthopedic Surgery, Prostate Surgery Additional Past Surgical History / Comment(s): CABG-3VESSEL 2002, PROSTATECTOMY (2008), LAST HEART CATH 2014 ( NO STENTS)., INGUINAL & ABD HERNIA WITH MESH. EG D, COLONOSCOPY. ARTHROSCOPY LEFT KNEE., BILAT CATARACTS, abd. aortogram. Past Anesthesia/Blood Transfusion Reactions: Family History of Problems w/ Anesthesia Additional Past Anesthesia/Blood Transfusion Reaction / Comment(s): PTS MOTHER DIFFICULTLY PUTTING HER TO SLEEP AND SHE HAD SEIZURE? Past Psychological History: No Psychological Hx Reported Smoking Status: Former smoker Past Alcohol Use History: None Reported Additional Past Alcohol Use History / Comment(s): SMOKED 1 1/2 -2 PPD FOR 30-40 YEARS. QUIT SMOKING 2002. Past Drug Use History: None Reported - Past Family History Sister(s) Family Medical History: Cancer Additional Family Medical History / Comment(s): BRAIN TUMOR- INOPERABLE Father Family Medical History: Cancer, CVA/TIA Additional Family Medical History / Comment(s): PROSTATE CA, CVA x19 Mother Family Medical History: Cancer Additional Family Medical History / Comment(s): UNKNOWN KIND Medications and Allergies Home Medications Medication Instructions Recorded Confirmed Type Aspirin EC [Ecotrin Low Dose] 81 mg PO DAILY 02/03/14 03/25/19 History Atorvastatin [Lipitor] 20 mg PO HS 02/03/14 03/25/19 History Hydrocodone/Acetaminophen 1 tab PO DAILY PRN 02/03/14 03/25/19 History [Hydrocodone/Acetaminophen 7.5-325] Omeprazole [PriLOSEC] 20 mg PO AC-BRKFST 02/03/14 03/25/19 History Ipratropium/Albuterol Sulfate 1 puff INHALATION RT-QID PRN 02/05/14 03/25/19 History [Combivent Respimat Inhaler] Ipratropium-Albuterol Nebulize 3 ml INHALATION RT-QID 05/02/16 03/25/19 History [Duoneb 0.5 mg-3 mg/3 ml Soln] Ranitidine HCl [Zantac] 150 mg PO BID 05/02/16 03/25/19 History Metoprolol Tartrate [Lopressor] 12.5 mg PO BID 09/27/16 03/25/19 History amLODIPine [Norvasc] 5 mg PO DAILY 10/21/16 03/25/19 History Insulin Detemir (Levemir) [Levemir] 25 unit SQ QAM 03/27/18 03/25/19 History Hydrochlorothiazide [Hydrodiuril] 25 mg PO DAILY 03/25/19 03/25/19 History metFORMIN HCL 500 mg PO DAILY 03/25/19 03/25/19 History Allergies Allergy/AdvReac Type Severity Reaction Status Date / Time Penicillins Allergy Rash/Hives Verified 03/25/19 14:20 hydralazine AdvReac Nausea & Verified 03/25/19 14:20 Vomiting methylprednisolone AdvReac ELEVATED Verified 03/25/19 14:20 [From Medrol] BLOOD GLUCOSE TO 600 sulfamethoxazole AdvReac Nausea & Verified 03/25/19 14:20 [From Bactrim] Vomiting & Diarrhea trimethoprim [From Bactrim] AdvReac Nausea & Verified 03/25/19 14:20 Vomiting & Diarrhea Physical Exam Vitals: Vital Signs Temp Pulse Pulse Resp BP BP Pulse Ox 03/25/19 20:50 98.0 F 78 20 180/75 96 03/25/19 20:30 74 20 140/54 95 03/25/19 20:21 78 03/25/19 20:10 75 03/25/19 20:00 73 14 133/58 100 03/25/19 19:30 69 17 133/58 100 03/25/19 19:00 70 18 141/84 93 L 03/25/19 18:30 70 19 99 03/25/19 18:00 97.6 F 72 19 145/61 99 03/25/19 17:30 73 23 139/61 98 03/25/19 17:00 72 13 127/61 98 03/25/19 16:30 75 98 03/25/19 16:00 80 16 150/82 98 03/25/19 15:30 80 18 138/67 97 03/25/19 15:00 138/67 03/25/19 14:41 79 03/25/19 14:30 15 177/87 100 03/25/19 14:24 75 03/25/19 14:13 79 21 177/87 100 03/25/19 14:12 75 27 H 177/87 96 03/25/19 14:11 76 18 177/87 93 L 03/25/19 14:10 177/87 98 03/25/19 14:09 177/87 96 03/25/19 14:08 177/87 99 03/25/19 14:07 91 L 03/25/19 13:56 97.9 F 79 16 155/66 99 Intake and Output 03/25/19 03/25/19 03/26/19 14:59 22:59 06:59 Other: Weight 82.554 kg Results CBC & Chem 7: 03/25/19 14:11 03/25/19 14:11 Labs: Abnormal Lab Results - Last 24 Hours (Table) 03/25/19 03/25/19 Range/Units 14:11 14:11 Hgb 8.4 L (13.0-17.5) gm/dL Hct 28.8 L (39.0-53.0) % MCV 67.0 L (80.0-100.0) fL MCH 19.5 L (25.0-35.0) pg MCHC 29.1 L (31.0-37.0) g/dL Glucose 190 H (74-99) mg/dL Magnesium 1.4 L (1.6-2.3) mg/dL ALT 13 L (21-72) U/L Thrombosis Risk Factor Assmnt - Choose All That Apply Each Factor Represents 1 point: Obesity (BMI >25) Each Risk Factor Represents 2 Points: Age 61-74 years Thrombosis Risk Factor Assessment Total Risk Factor Score: 3 Thrombosis Risk Factor Assessment Level: Moderate Risk
[2019-03-26] MEDS: METOPROLOL TARTRATE 12.5 MG TAB PO SCH ×3 (00:24→20:16)
[2019-03-26] MEDS: MELATONIN 3 MG TABLET PO SCH ×2 (00:24→20:16)
[2019-03-26] MEDS: IPRATROPIUM-ALBUTEROL 3 ML NEB INHALATION SCH ×7 (00:50→20:48)
[2019-03-26] MEDS: PANTOPRAZOLE 40 MG TABLET PO SCH (06:26)
[2019-03-26 06:51] LABS: Glucose,Whole Blood 212 mg/dL (75-99)
[2019-03-26 07:02] LABS: Calcium 9.3 mg/dL (8.4-10.2); Magnesium 1.8 mg/dL (1.6-2.3); Potassium 4.1 mmol/L (3.5-5.1)
[2019-03-26] MEDS: BUDESONIDE 1 MG/2 ML NEBU INHALATION SCH ×2 (08:24→20:47)
[2019-03-26] MEDS: AZITHROMYCIN 500 MG TAB PO SCH (08:29)
[2019-03-26] MEDS: metFORMIN 500 MG TAB PO SCH (08:29)
[2019-03-26] MEDS: ASPIRIN 81 MG PO SCH (08:29)
[2019-03-26] MEDS: ENOXAPARIN 40 MG/0.4 ML SYRINGE SQ SCH (08:29)
[2019-03-26] MEDS: amLODIPine 5 MG TAB PO SCH (08:29)
[2019-03-26] MEDS: INSULIN DETEMIR (LEVEMIR) 100 UNIT/ML SYR SQ SCH (08:31)
--- NOTE | 2019-03-26 08:46 | XR ---
EXAMINATION TYPE: XR chest 2V DATE OF EXAM: 03/26/2019 COMPARISON: Prior chest x-ray 03/25/2019 HISTORY: Pneumonia TECHNIQUE: Frontal and lateral views of the chest are obtained. FINDINGS: Patient is post median sternotomy. Heart size is stable. Pleural parenchymal changes are n ot significantly altered in the interval. No pneumothorax or pleural effusion evident. Interstitium i s increased. IMPRESSION: Multifocal abnormal densities described in prior report, correlate for pneumonia, conges tive heart failure not excluded. Prominence of the right hilum persists.
--- NOTE | 2019-03-26 08:49 | P.CRDCN ---
History of Present Illness Consult date: 03/26/19 Requesting physician: Meliton Zurita Consult reason: shortness of breath Chief complaint: Shortness of breath, productive cough History of present illness: This is a 73-year-old gentleman who follows with Dr. Hylton in the office. He has a known history of diabetes, hypertension, hyperlipidemia, nicotine dependence, PAD with prior arthrectomy and balloon angioplasty of the left common femoral in 2015, he also underwent peripheral intervention of the left SFA in 2016, Coronary artery disease with prior bypass surgery in 2002 at which time he underwent a NEWMAN to the LAD, radial to the OM 3 and diag. He presents to the hospital on this occasion with symptoms of shortness of breath with associated cough and productive yellow sputum. He denies having any fever at home. Chest x-ray on admission here showed areas of probable scarring, difficult to exclude superimposed pneumonia, abnormal densities within the lungs. EKG shows normal sinus rhythm with left bundle branch block pattern and nonspecific ST-T wave changes. I pressure on arrival here 150/60 with a heart rate in the 70s, 99% on room air. He was afebrile on presentation here. Blood pressure this morning is 130/60 with a heart rate in the 70s, 98% on room air. White blood cell count 9.9, hemoglobin 8.4, platelet count 358. Sodium 137, potassium 4.1, BUN 19 and creatinine 1.2. NEC and level on presentation here is 1.4, 1.8 this morning. Troponin 0.02, 0.01, 0.01. BNP [id number]. On review of prior lab data, it appears that in June of last year his hemoglobin was 12.8. At the time of my examination this morning, patient still feel somewhat short of breath. He continues to cough up significant amount of yellow sputum. Past Medical History Past Medical History: Coronary Artery Disease (CAD), Cancer, COPD, CVA/TIA, Diabetes Mellitus, GERD/Reflux, Hyperlipidemia, Hypertension, Myocardial Infarction (NE), Osteoarthritis (OA) Additional Past Medical History / Comment(s): NE X3, TIA, EMPHYSEMA, CHRONIC BRONCHITIS, DON'S ESOPHAGUS, HIATAL HERNIA, PROSTATE CA 2008, PEPTIC ULCER DISEASE. pain w/walking Last Myocardial Infarction Date:: 2009 History of Any Multi-Drug Resistant Organisms: None Reported Past Surgical History: Cholecystectomy, Coronary Bypass/CABG, Heart Catheterization, Hernia Repair, Orthopedic Surgery, Prostate Surgery Additional Past Surgical History / Comment(s): CABG-3VESSEL 2002, PROSTATECTOMY (2008), LAST HEART CATH 2014 ( NO STENTS)., INGUINAL & ABD HERNIA WITH MESH. EGD, COLONOSCOPY. ARTHROSCOPY LEFT KNEE., BILAT CATARACTS, abd. aortogram. Past Anesthesia/Blood Transfusion Reactions: Family History of Problems w/ Anesthesia Additional Past Anesthesia/Blood Transfusion Reaction / Comment(s): PTS MOTHER DIFFICULTLY PUTTING HER TO SLEEP AND SHE HAD SEIZURE? Past Psychological History: No Psychological Hx Reported Smoking Status: Former smoker Past Alcohol Use History: None Reported Additional Past Alcohol Use History / Comment(s): SMOKED 1 1/2 -2 PPD FOR 30-40 YEARS. QUIT SMOKING 2002. Past Drug Use History: None Reported - Past Family History Sister(s) Family Medical History: Cancer Additional Family Medical History / Comment(s): BRAIN TUMOR- INOPERABLE Father Family Medical History: Cancer, CVA/TIA Additional Family Medical History / Comment(s): PROSTATE CA, CVA x19 Mother Family Medical History: Cancer Additional Family Medical History / Comment(s): UNKNOWN KIND Medications and Allergies Home Medications Medication Instructions Recorded Confirmed Type Aspirin EC [Ecotrin Low Dose] 81 mg PO DAILY 02/03/14 03/25/19 History Atorvastatin [Lipitor] 20 mg PO HS 02/03/14 03/25/19 History Hydrocodone/Acetaminophen 1 tab PO DAILY PRN 02/03/14 03/25/19 History [Hydrocodone/Acetaminophen 7.5-325] Omeprazole [PriLOSEC] 20 mg PO AC-BRKFST 02/03/14 03/25/19 History Ipratropium/Albuterol Sulfate 1 puff INHALATION RT-QID PRN 02/05/14 03/25/19 History [Combivent Respimat Inhaler] Ipratropium-Albuterol Nebulize 3 ml INHALATION RT-QID 05/02/16 03/25/19 History [Duoneb 0.5 mg-3 mg/3 ml Soln] Ranitidine HCl [Zantac] 150 mg PO BID 05/02/16 03/25/19 History Metoprolol Tartrate [Lopressor] 12.5 mg PO BID 09/27/16 03/25/19 History amLODIPine [Norvasc] 5 mg PO DAILY 10/21/16 03/25/19 History Insulin Detemir (Levemir) [Levemir] 25 unit SQ QAM 03/27/18 03/25/19 History Hydrochlorothiazide [Hydrodiuril] 25 mg PO DAILY 03/25/19 03/25/19 History metFORMIN HCL 500 mg PO DAILY 03/25/19 03/25/19 History Allergies Allergy/AdvReac Type Severity Reaction Status Date / Time Penicillins Allergy Rash/Hives Verified 03/25/19 14:20 hydralazine AdvReac Nausea & Verified 03/25/19 14:20 Vomiting methylprednisolone AdvReac ELEVATED Verified 03/25/19 14:20 [From Medrol] BLOOD GLUCOSE TO 600 sulfamethoxazole AdvReac Nausea & Verified 03/25/19 14:20 [From Bactrim] Vomiting & Diarrhea trimethoprim [From Bactrim] AdvReac Nausea & Verified 03/25/19 14:20 Vomiting & Diarrhea Physical Exam Vitals: Vital Signs Temp Pulse Pulse Resp BP BP Pulse Ox 03/26/19 08:24 74 03/26/19 04:54 97.8 F 69 18 129/59 98 03/26/19 04:12 76 03/26/19 04:04 76 03/26/19 00:53 76 03/26/19 00:45 80 100 03/26/19 00:24 98.3 F 79 20 124/61 97 03/25/19 20:50 98.0 F 78 20 180/75 96 03/25/19 20:30 74 20 140/54 95 03/25/19 20:21 78 03/25/19 20:10 75 03/25/19 20:00 73 14 133/58 100 03/25/19 19:30 69 17 133/58 100 03/25/19 19:00 70 18 141/84 93 L 03/25/19 18:30 70 19 99 03/25/19 18:00 97.6 F 72 19 145/61 99 03/25/19 17:30 73 23 139/61 98 03/25/19 17:00 72 13 127/61 98 03/25/19 16:30 75 98 03/25/19 16:00 80 16 150/82 98 03/25/19 15:30 80 18 138/67 97 03/25/19 15:00 138/67 03/25/19 14:41 79 03/25/19 14:30 15 177/87 100 03/25/19 14:24 75 03/25/19 14:13 79 21 177/87 100 03/25/19 14:12 75 27 H 177/87 96 03/25/19 14:11 76 18 177/87 93 L 03/25/19 14:10 177/87 98 03/25/19 14:09 177/87 96 03/25/19 14:08 177/87 99 03/25/19 14:07 91 L 03/25/19 13:56 97.9 F 79 16 155/66 99 Intake and Output 03/25/19 03/26/19 03/26/19 22:59 06:59 14:59 Intake Total 240 Balance 240 Intake: Oral 240 Other: # Voids 1 Weight 80.3 kg PHYSICAL EXAMINATION: GENERAL: 73-year-old gentleman in no acute distress at the time of my examination HEENT: Head is atraumatic, normocephalic. Pupils equal, round. Sclera anicteric. Conjunctiva are clear. Mucous membranes of the mouth are moist. Neck is supple. There is no elevated jugular venous pressure. No carotid bruit is heard. HEART EXAMINATION: Heart S1, S2 normal. No murmur or gallop heard. CHEST EXAMINATION: Lungs reveal decreased air exchange, still scattered coarse rhonchi and wheezing throughout. ABDOMEN: Soft, nontender. Bowel sounds are heard. No organomegaly noted. EXTREMITIES: 1+ peripheral pulses with no evidence of peripheral edema and no calf tenderness noted. NEUROLOGIC patient is awake, alert and oriented 3 . . Results 03/25/19 14:11 03/26/19 05:31 Cardiac Enzymes 03/25/19 03/25/19 03/25/19 Range/Units 14:11 14:11 20:08 AST 18 (17-59) U/L Troponin I 0.020 0.016 (0.000-0.034) ng/mL 03/26/19 Range/Units 05:31 AST (17-59) U/L Troponin I 0.017 (0.000-0.034) ng/mL Coagulation 03/25/19 Range/Units 14:11 PT 10.2 (9.0-12.0) sec APTT 22.3 (22.0-30.0) sec CBC 03/25/19 Range/Units 14:11 WBC 9.9 (3.8-10.6) k/uL RBC 4.30 (4.30-5.90) m/uL Hgb 8.4 L (13.0-17.5) gm/dL Hct 28.8 L (39.0-53.0) % Plt Count 358 (150-450) k/uL Comprehensive Metabolic Panel 03/25/19 03/26/19 Range/Units 14:11 05:31 Sodium 138 137 (137-145) mmol/L Potassium 4.8 4.1 (3.5-5.1) mmol/L Chloride 103 103 (98-107) mmol/L Carbon Dioxide 23 24 (22-30) mmol/L BUN 15 19 (9-20) mg/dL Creatinine 1.14 1.26 H (0.66-1.25) mg/dL Glucose 190 H 185 H (74-99) mg/dL Calcium 10.0 9.3 (8.4-10.2) mg/dL AST 18 (17-59) U/L ALT 13 L (21-72) U/L Alkaline Phosphatase 79 (38-126) U/L Total Protein 7.0 (6.3-8.2) g/dL Albumin 4.1 (3.5-5.0) g/dL Current Medications Generic Name Dose Route Start Last Admin Trade Name Freq PRN Reason Stop Dose Admin Hydrocodone Bitart/Acetaminophen 1 each 03/25/19 23:19 Elroy 7.5-325 PO DAILY PRN Pain Albuterol Sulfate 2.5 mg 03/25/19 16:47 03/26/19 04:02 Ventolin Nebulized INHALATION 2.5 mg RT-Q4H PRN Administration Shortness Of Breath Or Wheezing Albuterol/Ipratropium 3 ml 03/25/19 23:21 03/26/19 08:24 Duoneb 0.5 Mg-3 Mg/3 Ml Soln INHALATION 3 ml RT-Q4H JULIANO Administration Amlodipine Besylate 5 mg 03/26/19 09:00 Norvasc PO DAILY [facility] Aspirin 325 mg 03/26/19 09:00 Aspirin PO DAILY [facility] Aspirin 81 mg 03/26/19 09:00 Aspirin PO DAILY [facility] Atorvastatin Calcium 80 mg 03/25/19 21:00 03/25/19 21:05 Lipitor PO 80 mg HS JULIANO Administration Azithromycin 500 mg 03/26/19 09:00 Zithromax PO DAILY JULIANO Budesonide 1 mg 03/26/19 08:00 03/26/19 08:24 Pulmicort INHALATION 1 mg RT-BID JULIANO Administration Enoxaparin Sodium 40 mg 03/26/19 09:00 Lovenox SQ DAILY [facility] Ceftriaxone Sodium 1 gm/ 50 mls @ 100 mls/hr 03/26/19 09:00 Sodium Chloride IVPB 03/29/19 09:01 Q24HR [facility] Insulin Detemir 25 unit 03/26/19 09:00 Levemir SQ QAM JULIANO Melatonin 3 mg 03/26/19 00:15 03/26/19 00:24 Melatonin PO 3 mg HS JULIANO Administration Metformin HCl 500 mg 03/26/19 09:00 Glucophage PO DAILY [facility] Metoprolol Tartrate 12.5 mg 03/25/19 23:30 03/26/19 00:24 Lopressor PO 12.5 mg BID JULIANO Administration Miscellaneous Information 1 each 03/25/19 16:47 Pneumonia Protocol Utilized PO ONCE PRN Per Protocol Pantoprazole Sodium 40 mg 03/26/19 07:30 03/26/19 06:26 Protonix PO 40 mg AC-BRKFST JULIANO Administration Intake and Output 03/25/19 03/26/19 03/26/19 22:59 06:59 14:59 Intake Total 240 Balance 240 Intake: Oral 240 Other: # Voids 1 Weight 80.3 kg 03/25/19 14:11 03/26/19 05:31 EKG Interpretations (text) EKG shows a normal sinus rhythm with a left bundle-branch block pattern and nonspecific ST-T wave changes. Assessment and Plan Plan: Assessment and plan #1 symptoms of shortness of breath with associated sputum production, yellow in color. Probable pneumonia, was on outpatient antibiotics without improvement. #2 anemia, may be contributing to the patient's shortness of breath, hemoglobin on admission 8.2 #3 coronary artery disease with prior bypass surgery in 2002 at which time the patient underwent a NEWMAN to the LAD radial to the OM 3 saphenous vein graft to t he diagonal #4 severe PAD and PVD with multiple procedures being performed in the past #5 hypertension #6 hyperlipidemia #7 Don's esophagus #8 hiatal hernia #9 diabetes #10 COPD with possible exacerbation #11 nicotine dependence #12 hypomagnesemia Plan Will obtain an echocardiogram with Doppler study. Recommend a workup for anemia, replace magnesium. Decrease aspirin to 81 mg daily. Continue statin, beta tracey, antibiotics. Further recommendations to follow. DNP note has been reviewed, I agree with a documented findings and plan of care. Patient was seen and examined.
[2019-03-26] MEDS ORDERED: ASPIRIN 325 MG TAB PO SCH (09:00)
[2019-03-26] MEDS: HYDROcodone/APAP 7.5-325MG 1 EACH TAB PO PRN ×2 (09:10→20:15)
[2019-03-26 12:00] LABS: Glucose,Whole Blood 179 mg/dL (75-99)
[2019-03-26] MEDS: MAGNESIUM SULFATE-D5W PMX 1 GM in DEXTROSE/WATER 1 100ML.BAG IVPB SCH ×2 (12:04→13:52)
--- NOTE | 2019-03-26 12:21 | ECHOF ---
Referral Reason:Heart Failure MEASUREMENTS -------- HEIGHT: 172.7 cm WEIGHT: 82.6 kg BP: 129/59 IVSd: 1.1 cm (0.6 - 1.1) LVIDd: 5.7 cm (3.9 - 5.3) LVPWd: 1.1 cm (0.6 - 1.1) IVSs: 1.7 cm LVIDs: 3.3 cm LVPWs: 2.0 cm LAESV Index (A-L): 32.96 ml/m Ao Diam: 3.0 cm (2.0 - 3.7) AV Cusp: 2.2 cm (1.5 - 2.6) LA Diam: 3.1 cm (2.7 - 3.8) MV EXCURSION: 22.907 mm (> 18.000) MV EF SLOPE: 102 mm/s (70 - 150) EPSS: 2.3 cm MV E Preston: 1.23 m/s MV DecT: 218 ms MV A Preston: 1.14 m/s MV E/A Ratio: 1.08 AV maxP.26 mmHg AV meanP.05 mmHg RAP: 15.00 mmHg RVSP: 66.57 mmHg FINDINGS -------- Sinus rhythm. This was a technically good study. Previous CABG The left ventricular size is normal. Left ventricular wall thickness is normal. Overall left vent ricular systolic function is mild-moderately impaired with, an EF between 40 - 45 %. There is parad oxical/dysynergic septal motion consistent with post-operative status. Mid s eptal Hypokinesis Mid to basal inferiorlateral is hypokinetic The right ventricle is normal in size. LA is midly dilated 29-33ml/m2. The right atrial size is normal. Interatrial and interventricular septum intact. Aortic valve is trileaflet and is mildly thickened. There is mild aortic valve sclerosis. Peak/me an gradient across the Aortic Valve is 16.26mmHg / 8.05mmHg. The mitral valve leaflets are mildly thickened. Mild mitral regurgitation is present. Moderate tricuspid regurgitation present. There is moderate pulmonary hypertension. The right ken tricular systolic pressure, as measured by Doppler, is 66.57mmHg. Trace/mild (physiologic) pulmonic regurgitation. The aortic root size is normal. The inferior vena cava is mildly dilated. There is no pericardial effusion. CONCLUSIONS -------- 1. Sinus rhythm. 2. This was a technically good study. 3. Previous CABG 4. The left ventricular size is normal. 5. Left ventricular wall thickness is normal. 6. Overall left ventricular systolic function is mild-moderately impaired with, an EF between 40 - 45 %. 7. There is paradoxical/dysynergic septal motion consistent with post-operative status. 8. Mid septal Hypokinesis 9. Mid to basal inferiorlateral is hypokinetic 10. The right ventricle is normal in size. 11. LA is midly dilated 29-33ml/m2. 12. The right atrial size is normal. 13. Interatrial and interventricular septum intact. 14. Aortic valve is trileaflet and is mildly thickened. 15. There is mild aortic valve sclerosis. 16. Peak/mean gradient across the Aortic Valve is 16.26mmHg / 8.05mmHg. 17. The mitral valve leaflets are mildly thickened. 18. Mild mitral regurgitation is present. 19. Moderate tricuspid regurgitation present. 20. There is moderate pulmonary hypertension. 21. The right ventricular systolic pressure, as measured by Doppler, is 66.57mmHg. 22. Trace/mild (physiologic) pulmonic regurgitation. 23. The aortic root size is normal. 24. The inferior vena cava is mildly dilated. 25. There is no pericardial effusion. RECRUITER ACCOUNT MANAGER: Serena Felton RDCS
[2019-03-26 16:59] LABS: Glucose,Whole Blood 206 mg/dL (75-99)
[2019-03-26] MEDS: ATORVASTATIN 80 MG TAB PO SCH (20:16)
[2019-03-26 20:53] LABS: Glucose,Whole Blood 186 mg/dL (75-99)
--- NOTE | 2019-03-26 22:44 | P.PN ---
Progress Note - Text Progress Note Date: 03/26/19 Chief Complaint: Shortness of breath Interval history: This is a pleasant 73-year-old patient who follows with Dr. Orona. Chronic stable medical conditions include coronary artery disease, diabetes, GERD, hypertension, hyperlipidemia, osteoarthritis but is esophagus hiatal hernia and peptic ulcer disease. Patient felt to be set being short of breath with some yellow sputum no fever or chills, wheezing no edema. Patient did see Dr. Aguilar did receive a course of antibiotic do not get any better. Symptoms have persisted. Decided to come in. This no chest pain or palpitation. Today-feeling a bit better. Less wheezing. Less cough. Dr. Hanley that. Sitting up in bed. Review of systems: Was done for constitutional, cardiovascular, GI, pulmonary. relevant finding as above Current medications reviewed that included: Nebulized bronchodilator, IV ceftriaxone, Physical examination: VITAL SIGNS: Weight 7.8, 70, 16, 1 42 x 63, 99% room air GENERAL: Average built, propped up looking better. EYES: Pupils equal. Conjunctiva normal. HEENT: External appearance of nose and ears normal, oral cavity grossly normal. NECK: JVD not raised; masses not palpable. HEART: First and second heart sounds are normal; no edema. LUNGS: Respiratory rate increased, decreased breath sounds improving air entry. ABDOMEN: Soft, nontender, liver spleen not palpable, no masses palpable. LYMPHATICS: No lymph nodes palpable in the axilla and neck. PSYCH: [Alert and oriented x3; mood and affect anxious l. NEUROLOGICAL: Cranial nerves grossly intact; no facial asymmetry, power and sensation grossly intact. Investigations: Reviewed in the clinical context Potassium 4.1 Accu-Cheks 212 179 procalcitonin 0.10 Assessment: -Acute COPD exacerbation in ex-smoker having failed outpatient treatment -Probable pneumonia having failed outpatient treatment, suspected gram-negative organism -Coronary artery disease with a prior history of coronary bypass 3 vessels in 2003 - diabetes mellitus type 2 on oral hypoglycemic GERD Hyperlipidemia Essential hypertension Primary osteoarthritis -Bashir's esophagus -Hiatal hernia Plan: Patient feeling better. Continue with bronchodilators. Continue with antibiotic. Encouraged to be out of bed. Other medication is to continue. Because of ALLERGY to steroids Solu-Medrol were held
[2019-03-27] MEDS ORDERED: IPRATROPIUM-ALBUTEROL 3 ML NEB ONE
[2019-03-27] MEDS: IPRATROPIUM-ALBUTEROL 3 ML NEB INHALATION SCH ×7 (06:06→21:12)
[2019-03-27] MEDS: PANTOPRAZOLE 40 MG TABLET PO SCH (06:07)
[2019-03-27 06:30] LABS: Glucose,Whole Blood 197 mg/dL (75-99)
[2019-03-27 07:06] LABS: Basophils % (A) 1 %; Eosinophils # (A) 0.4 k/uL (0-0.7); Eosinophils % (A) 6 %; HCT 27.3 % (39.0-53.0); HGB 7.6 gm/dL (13.0-17.5); Hypochromasia Marked; Lymphocytes # (A) 1.4 k/uL (1.0-4.8); Lymphocytes % (A) 26 %; MCH 19.7 pg (25.0-35.0); MCHC 27.9 g/dL (31.0-37.0); MCV 70.6 fL (80.0-100.0); Mean Platelet Volume 7.3; Microcytosis Moderate; Monocytes # (A) 0.4 k/uL (0-1.0); Monocytes % (A) 8 %; Neutrophils # (A) 3.2 k/uL (1.3-7.7); Neutrophils % (A) 56 %; Platelet Count 355 k/uL (150-450); Poikilocytosis Slight; RBC 3.87 m/uL (4.30-5.90); RDW 15.3 % (11.5-15.5); WBC 5.7 k/uL (3.8-10.6)
[2019-03-27 07:24] LABS: Calcium 9.9 mg/dL (8.4-10.2)
[2019-03-27] MEDS: BUDESONIDE 1 MG/2 ML NEBU INHALATION SCH ×2 (07:51→21:09)
[2019-03-27] MEDS: AZITHROMYCIN 500 MG TAB PO SCH (09:12)
[2019-03-27] MEDS: ENOXAPARIN 40 MG/0.4 ML SYRINGE SQ SCH (09:12)
[2019-03-27] MEDS: METOPROLOL TARTRATE 12.5 MG TAB PO SCH ×2 (09:12→20:38)
[2019-03-27] MEDS: metFORMIN 500 MG TAB PO SCH ×2 (09:12→21:57)
[2019-03-27] MEDS: amLODIPine 5 MG TAB PO SCH (09:12)
[2019-03-27] MEDS: ASPIRIN 81 MG PO SCH (09:12)
[2019-03-27] MEDS: INSULIN DETEMIR (LEVEMIR) 100 UNIT/ML SYR SQ SCH (09:14)
[2019-03-27 10:11] VITALS: TEMP 97.8
[2019-03-27 12:15] LABS: Glucose,Whole Blood 171 mg/dL (75-99)
--- NOTE | 2019-03-27 12:41 | P.PN ---
Subjective Progress Note Date: 03/27/19 This is a 73-year-old gentleman who follows with Dr. Hylton in the office. He has a known history of diabetes, hypertension, hyperlipidemia, nicotine dependence, PAD with prior arthrectomy and balloon angioplasty of the left common femoral in 2015, he also underwent peripheral intervention of the left SFA in 2017, Coronary artery disease with prior bypass surgery in 2002 at which time he underwent a NEWMAN to the LAD, radial to the OM 3 and diag. He presents to the hospital on this occasion with symptoms of shortness of breath with associated cough and productive yellow sputum. He denies having any fever at home. Chest x-ray on admission here showed areas of probable scarring, difficult to exclude superimposed pneumonia, abnormal densities within the lungs. EKG shows normal sinus rhythm with left bundle branch block pattern and nonspecific ST-T wave changes. I pressure on arrival here 150/60 with a heart rate in the 70s, 99% on room air. He was afebrile on presentation here. Blood pressure this morning is 130/60 with a heart rate in the 70s, 98% on room air. White blood cell count 9.9, hemoglobin 8.4, platelet count 358. Sodium 137, potassium 4.1, BUN 19 and creatinine 1.2. NEC and level on presentation here is 1.4, 1.8 this morning. Troponin 0.02, 0.01, 0.01. BNP [id number]. On review of prior lab data, it appears that in June of last year his hemoglobin was 12.8. At the time of my examination this morning, patient still feel somewhat short of breath. He continues to cough up significant amount of yellow sputum. 03/27/2019 Patient seen and examined this morning, continues to have productive cough.blood pressure 154/60 with a heart rate in the 70s.White blood cell count 5.7, hemoglobin 7.6, platelet count 355. Sodium 139, potassium 5.0, BUN 15 and creatinine 1.1.echocardiogram with Doppler study revealed an ejection fraction of 40-45%, mid septal hypokinesia noted. Objective - Vital Signs Vital signs: Vital Signs Temp 97.8 F 03/27/19 08:00 Pulse 76 03/27/19 11:34 Resp 18 03/27/19 08:00 BP 155/65 03/27/19 08:00 Pulse Ox 98 03/27/19 08:00 Intake & Output 03/26/19 03/27/19 03/27/19 18:59 06:59 18:59 Intake Total 720 100 100 Balance 720 100 100 Weight 81 kg Intake: Intake, IV Titration 100 Amount cefTRIAXone 1 gm In 100 Sodium Chloride 0.9% 50 ml @ 100 mls/hr IVPB Q24HR JULIANO Rx#:[id number] Oral 720 100 Other: Voiding Method Toilet # Voids 3 2 1 # Bowel Movements 1 - Exam PHYSICAL EXAMINATION: GENERAL: 73-year-old gentleman in no acute distress at the time of my examination HEENT: Head is atraumatic, normocephalic. Pupils equal, round. Sclera anicteric. Conjunctiva are clear. Mucous membranes of the mouth are moist. Neck is supple. There is no elevated jugular venous pressure. No carotid bruit is heard. HEART EXAMINATION: Heart S1, S2 normal. No murmur or gallop heard. CHEST EXAMINATION: Lungs reveal decreased air exchange, still scattered coarse rhonchi and wheezing throughout. ABDOMEN: Soft, nontender. Bowel sounds are heard. No organomegaly noted. EXTREMITIES: 1+ peripheral pulses with no evidence of peripheral edema and no calf tenderness noted. NEUROLOGIC patient is awake, alert and oriented 3 . - Labs CBC & Chem 7: 03/27/19 06:43 03/27/19 06:43 Labs: Abnormal Lab Results - Last 24 Hours (Table) 03/26/19 03/26/19 03/27/19 Range/Units 16:56 20:45 06:07 RBC (4.30-5.90) m/uL Hgb (13.0-17.5) gm/dL Hct (39.0-53.0) % MCV (80.0-100.0) fL MCH (25.0-35.0) pg MCHC (31.0-37.0) g/dL Glucose (74-99) mg/dL POC Glucose (mg/dL) 206 H 186 H 197 H (75-99) mg/dL 03/27/19 03/27/19 03/27/19 Range/Units 06:43 06:43 12:11 RBC 3.87 L (4.30-5.90) m/uL Hgb 7.6 L (13.0-17.5) gm/dL Hct 27.3 L (39.0-53.0) % MCV 70.6 L (80.0-100.0) fL MCH 19.7 L (25.0-35.0) pg MCHC 27.9 L (31.0-37.0) g/dL Glucose 186 H (74-99) mg/dL POC Glucose (mg/dL) 171 H (75-99) mg/dL Microbiology - Last 24 Hours (Table) 03/26/19 12:20 Gram Stain - Preliminary Sputum Sputum Culture - Preliminary 03/25/19 14:11 Blood Culture - Preliminary Blood No Growth after 24 hours Assessment and Plan Plan: Assessment and plan #1 symptoms of shortness of breath with associated sputum production, yellow in color. Probable pneumonia, was on outpatient antibiotics without improvement. #2 anemia, may be contributing to the patient's shortness of breath, hemoglobin on admission 8.2 #3 coronary artery disease with prior bypass surgery in 2002 at which time the patient underwent a NEWMAN to the LAD radial to the OM 3 saphenous vein graft to the diagonal #4 severe PAD and PVD with multiple procedures being performed in the past #5 hypertension #6 hyperlipidemia #7 Bashir's esophagus #8 hiatal hernia #9 diabetes #10 COPD with possible exacerbation #11 nicotine dependence #12 hypomagnesemia Plan from cardiology's perspective, we will recommend to continue the patient on his current medications. We will follow him along with you now on an as-needed basis only, please don't hesitate to call with any questions. DNP note has been reviewed, I agree with a documented findings and plan of care. Patient was seen and examined.
[2019-03-27 13:28] VITALS: BMI 27.1
[2019-03-27 17:32] LABS: Iron Saturation 3.08 (15.00-50.00)
[2019-03-27] MEDS: HYDROcodone/APAP 7.5-325MG 1 EACH TAB PO PRN (18:13)
[2019-03-27] MEDS: MELATONIN 3 MG TABLET PO SCH (20:38)
[2019-03-27] MEDS: ATORVASTATIN 80 MG TAB PO SCH (20:38)
[2019-03-27] MEDS: BENZONATATE 100 MG CAP PO PRN (20:38)
[2019-03-27 20:45] LABS: Glucose,Whole Blood 264 mg/dL (75-99)
--- NOTE | 2019-03-27 20:48 | P.PN ---
Progress Note - Text Progress Note Date: 03/27/19 Chief Complaint: Shortness of breath Interval history: This is a pleasant 73-year-old patient who follows with Dr. Orona. Chronic stable medical conditions include coronary artery disease, diabetes, GERD, hypertension, hyperlipidemia, osteoarthritis but is esophagus hiatal hernia and peptic ulcer disease. Patient felt to be set being short of breath with some yellow sputum no fever or chills, wheezing no edema. Patient did see Dr. Aguilar did receive a course of antibiotic do not get any better. Symptoms have persisted. Decided to come in. This no chest pain or palpitation. Today-breathing much improved. Sitting up. Starting a diet. Is a bit tired. Hemoglobin was noted to be low from a few months ago per GI consult has been initiated. Review of systems: Was done for constitutional, cardiovascular, GI, pulmonary. relevant finding as above Current medications reviewed that included: Nebulized bronchodilator, IV ceftriaxone, Physical examination: VITAL SIGNS: 97.8, 66, 18, 1 55 / 65, 98% room air GENERAL: Sitting at the edge of the bed. Feeling better. EYES: Pupils equal. Conjunctiva normal. HEENT: External appearance of nose and ears normal, oral cavity grossly normal. NECK: JVD not raised; masses not palpable. HEART: First and second heart sounds are normal; no edema. LUNGS: Respiratory rate increased, decreased breath sounds improving air entry. ABDOMEN: Soft, nontender, liver spleen not palpable, no masses palpable. PSYCH: [Alert and oriented x3; mood and affect anxious l. Investigations: Reviewed in the clinical context White count 5.7, hemoglobin 7.6, potassium 5, BUN 15, creatinine 1.13 Ferritin 10.7 Assessment: -Acute COPD exacerbation in ex-smoker having failed outpatient treatment -Probable pneumonia having failed outpatient treatment, suspected gram-negative organism, doing better -Coronary artery disease with a prior history of coronary bypass 3 vessels in 2002 - -diabetes mellitus type 2 on oral hypoglycemic GERD Hyperlipidemia Essential hypertension Primary osteoarthritis -Bashir's esophagus -Hiatal hernia -Iron deficiency anemia. Cause unknown. GI been consulted Plan: Patient overall feeling much better. GI is being consulted for the anemia. Switch to oral antibiotic. Care was discussed with the patient.
[2019-03-27] MEDS: CEFDINIR 300 MG CAP PO SCH (21:15)
[2019-03-27] MEDS: INSULIN ASPART (NovoLOG) 100 UNIT/ML VIAL SQ SCH (21:57)
[2019-03-28] MEDS: BENZONATATE 100 MG CAP PO PRN ×2 (03:58→13:05)
[2019-03-28 06:29] LABS: Calcium 9.6 mg/dL (8.4-10.2); Magnesium 1.5 mg/dL (1.6-2.3); Potassium 4.7 mmol/L (3.5-5.1)
[2019-03-28 06:36] LABS: Glucose,Whole Blood 116 mg/dL (75-99)
[2019-03-28] MEDS: INSULIN ASPART (NovoLOG) 100 UNIT/ML VIAL SQ SCH ×2 (06:36→13:06)
[2019-03-28] MEDS: PANTOPRAZOLE 40 MG TABLET PO SCH (06:48)
[2019-03-28] MEDS: BUDESONIDE 1 MG/2 ML NEBU INHALATION SCH (07:35)
[2019-03-28] MEDS: IPRATROPIUM-ALBUTEROL 3 ML NEB INHALATION SCH ×2 (07:36→11:37)
[2019-03-28] MEDS: INSULIN DETEMIR (LEVEMIR) 100 UNIT/ML SYR SQ SCH (09:06)
[2019-03-28] MEDS: amLODIPine 5 MG TAB PO SCH (09:07)
[2019-03-28] MEDS: ENOXAPARIN 40 MG/0.4 ML SYRINGE SQ SCH (09:07)
[2019-03-28] MEDS: METOPROLOL TARTRATE 12.5 MG TAB PO SCH (09:07)
[2019-03-28] MEDS: metFORMIN 500 MG TAB PO SCH (09:07)
[2019-03-28] MEDS: AZITHROMYCIN 500 MG TAB PO SCH (09:07)
[2019-03-28] MEDS: CEFDINIR 300 MG CAP PO SCH (09:07)
[2019-03-28] MEDS: ASPIRIN 81 MG PO SCH (09:07)
[2019-03-28 11:35] LABS: Glucose,Whole Blood 163 mg/dL (75-99)
--- NOTE | 2019-03-28 12:11 | P.CONS ---
History of Present Illness - Reason for Consult Consult date: 03/28/19 anemia Requesting physician: Meliton Zurita - Chief Complaint Shortness of breath - History of Present Illness 73 year old male admitted with pneumonia past medical history of colonic polyps and Don's esophagus. Consult requested for anemia. Patient's admission hemoglobin 8.4. MCV 67. Platelets 358. White count 9.9. Previous hemoglobin 9 months ago was between 11-12 range, normocytic MCV 85-87. Platelets 355. Denies overt bleeding such as hematemesis met acute 0 or melena. Patient states he had EGD colonoscopy performed by Dr. Avendaño about 4 years ago. Polyps removed there was evidence of Don's esophagus. His biopsies were negative for dysplasia. Denies abdominal odynophagia dysphagia no emesis. Iron 12. TIBC 390. Iron saturation 3%. Ferritin 10.7. FOBT negative. No weight loss. No abdominal pain. Afebrile. No excessive aspirin, NSAIDs or antiplatelet medications. Home medications include Zantac 150 mg twice daily and omeprazole 20 mg before meals breakfast. Review of Systems Constitutional: Denies fever, chills, sweats, weight gain, or loss. HEENT: Negative for migraines, blurred vision or loss, earaches, drainage, tinnitus, oral mucosal lesions, dysphagia, or odynophagia. Cardiac: Negative for chest pain, arrhythmias, or palpitation. Respiratory: Positive for shortness of breath, denies hemoptysis, cough, or sputum production. Gastrointestinal: See HPI for pertinent findings. Genitourinary: Negative for hematuria, urgency, frequency, polyuria, dysuria, or penile discharge. Musculoskeletal: Negative for muscle aches, swelling, arthritis, and arthralgias. Neurologic: Negative for stroke or TIA. Endocrine: Negative for thyroid problems. Skin: Negative for rash or itching. Psychiatric: Negative history for depression and anxiety Past Medical History Past Medical History: Coronary Artery Disease (CAD), Cancer, COPD, CVA/TIA, Diabetes Mellitus, GERD/Reflux, Hyperlipidemia, Hypertension, Myocardial Infarction (ME), Osteoarthritis (OA) Additional Past Medical History / Comment(s): ME X3, TIA, EMPHYSEMA, CHRONIC BRONCHITIS, DON'S ESOPHAGUS, HIATAL HERNIA, PROSTATE CA 2008, PEPTIC ULCER DISEASE. pain w/walking Last Myocardial Infarction Date:: 2009 History of Any Multi-Drug Resistant Organisms: None Reported Past Surgical History: Cholecystectomy, Coronary Bypass/CABG, Heart Catheterization, Hernia Repair, Orthopedic Surgery, Prostate Surgery Additional Past Surgical History / Comment(s): CABG-3VESSEL 2002, PROSTATECTOMY (2008), LAST HEART CATH 2014 ( NO STENTS)., INGUINAL & ABD HERNIA WITH MESH. EGD, COLONOSCOPY. ARTHROSCOPY LEFT KNEE., BILAT CATARACTS, abd. aortogram. Past Anesthesia/Blood Transfusion Reactions: Family History of Problems w/ Anesthesia Additional Past Anesthesia/Blood Transfusion Reaction / Comm: PTS MOTHER DIFFI CULTLY PUTTING HER TO SLEEP AND SHE HAD SEIZURE? Past Psychological History: No Psychological Hx Reported Smoking Status: Former smoker Past Alcohol Use History: None Reported Additional Past Alcohol Use History / Comment(s): SMOKED 1 1/2 -2 PPD FOR 30-40 YEARS. QUIT SMOKING 2002. Past Drug Use History: None Reported - Past Family History Sister(s) Family Medical History: Cancer Additional Family Medical History / Comment(s): BRAIN TUMOR- INOPERABLE Father Family Medical History: Cancer, CVA/TIA Additional Family Medical History / Comment(s): PROSTATE CA, CVA x19 Mother Family Medical History: Cancer Additional Family Medical History / Comment(s): UNKNOWN KIND Medications and Allergies Home Medications Medication Instructions Recorded Confirmed Type Aspirin EC [Ecotrin Low Dose] 81 mg PO DAILY 02/03/14 03/25/19 History Atorvastatin [Lipitor] 20 mg PO HS 02/03/14 03/25/19 History Hydrocodone/Acetaminophen 1 tab PO DAILY PRN 02/03/14 03/25/19 History [Hydrocodone/Acetaminophen 7.5-325] Omeprazole [PriLOSEC] 20 mg PO AC-BRKFST 02/03/14 03/25/19 History Ipratropium/Albuterol Sulfate 1 puff INHALATION RT-QID PRN 02/05/14 03/25/19 History [Combivent Respimat Inhaler] Ipratropium-Albuterol Nebulize 3 ml INHALATION RT-QID 05/02/16 03/25/19 History [Duoneb 0.5 mg-3 mg/3 ml Soln] Ranitidine HCl [Zantac] 150 mg PO BID 05/02/16 03/25/19 History Metoprolol Tartrate [Lopressor] 12.5 mg PO BID 09/27/16 03/25/19 History amLODIPine [Norvasc] 5 mg PO DAILY 10/21/16 03/25/19 History Insulin Detemir (Levemir) [Levemir] 25 unit SQ QAM 03/27/18 03/25/19 History Hydrochlorothiazide [Hydrodiuril] 25 mg PO DAILY 03/25/19 03/25/19 History metFORMIN HCL 500 mg PO BID 03/25/19 03/27/19 History Allergies Allergy/AdvReac Type Severity Reaction Status Date / Time Penicillins Allergy Rash/Hives Verified 03/25/19 14:20 hydralazine AdvReac Nausea & Verified 03/25/19 14:20 Vomiting methylprednisolone AdvReac ELEVATED Verified 03/25/19 14:20 [From Medrol] BLOOD GLUCOSE TO 600 sulfamethoxazole AdvReac Nausea & Verified 03/25/19 14:20 [From Bactrim] Vomiting & Diarrhea trimethoprim [From Bactrim] AdvReac Nausea & Verified 03/25/19 14:20 Vomiting & Diarrhea Physical Exam Vitals: Vital Signs Temp Pulse Pulse Resp BP Pulse Ox 03/28/19 08:00 97.8 F 83 16 95/67 95 03/28/19 04:42 97.8 F 73 16 125/69 95 03/28/19 04:00 73 16 03/28/19 00:55 72 16 03/28/19 00:00 72 16 138/63 97 03/27/19 21:28 84 03/27/19 21:09 84 94 L 03/27/19 20:00 97.8 F 87 16 190/79 96 03/27/19 16:00 18 Intake and Output 03/27/19 03/28/19 03/28/19 22:59 06:59 14:59 Intake Total 240 Balance 240 Intake: Oral 240 Other: Voiding Method Toilet # Voids 1 1 1 Weight 81 kg General appearance: The patient is alert, oriented, in no acute distress. HET: Head is normocephalic and atraumatic. Pupils are equal and reactive. Oropharynx is clear without lesions. Neck: Supple without lymphadenopathy. Trachea midline. Heart: S1 S2. Regular rate and rhythm. Lungs: No crackles or wheezes are heard. Abdomen: Soft, nontender, nondistended with bowel sounds. No peritoneal signs. No palpable organomegaly or masses. Extremities: Normal skin color and turgor. No cyanosis, rash, ulceration, clubbing, or edema. Radial and pedal pulses are 2/4 bilaterally. Neurological: No focal deficits. Strength and sensation are grossly intact. Results CBC & Chem 7: 03/27/19 06:43 03/28/19 05:21 Labs: Abnormal Lab Results - Last 24 Hours (Table) 03/27/19 03/27/19 03/27/19 Range/Units 06:43 12:11 20:38 Glucose (74-99) mg/dL POC Glucose (mg/dL) 171 H 264 H (75-99) mg/dL Magnesium (1.6-2.3) mg/dL Iron 12 L (65-175) ug/dL Iron Saturation 3.08 L (15.00-50.00) Ferritin 10.7 L (22.0-322.0) ng/mL 03/28/19 03/28/19 03/28/19 Range/Units 05:21 06:33 11:30 Glucose 101 H (74-99) mg/dL POC Glucose (mg/dL) 116 H 163 H (75-99) mg/dL Magnesium 1.5 L (1.6-2.3) mg/dL Iron (65-175) ug/dL Iron Saturation (15.00-50.00) Ferritin (22.0-322.0) ng/mL Microbiology - Last 24 Hours (Table) 03/26/19 12:20 Gram Stain - Final Sputum Sputum Culture - Final 03/25/19 14:11 Blood Culture - Preliminary Blood No Growth after 48 hours Assessment and Plan (1) Microcytic hypochromic anemia Narrative/Plan: Iron deficient microcytic hypochromic anemia without overt GI bleeding such as hematemesis hematochezia melena with negative FOBT with an underlying history of Don's esophagus and colonic polyps. Last EGD colonoscopy screening approximately 4 years ago per patient history. Current Visit: Yes Status: Acute Code(s): D50.9 - IRON DEFICIENCY ANEMIA, UNSPECIFIED SNOMED Code(s): 87992062 (2) Barretts esophagus Current Visit: Yes Status: Acute Code(s): K22.70 - DON'S ESOPHAGUS WITHOUT DYSPLASIA SNOMED Code(s): 448574911 (3) Pneumonia Current Visit: Yes Status: Acute Code(s): J18.9 - PNEUMONIA, UNSPECIFIED ORGANISM SNOMED Code(s): 039001790 Plan: 1. From a GI standpoint agreeable for discharge patient is not exhibiting clinical evidence of active GI bleeding FOBT negative, no weight loss or abdominal pain. Advise ferrous sulfate 325 mg twice daily. Receiving antibiotic therapy for pneumonia. Patient was advised to follow up in GI office in 2 weeks for reevaluation and scheduling of outpatient EGD colonoscopy. Patient is agreeable with this plan of care. He was advised to return to the hospital if he develops shortness of breath chest pain, emesis magnesium melena or abdominal pain fever. He verbalized understanding of instructions. Thank you for this kind referral and the opportunity to participate in the care of your patient. This consultation was discussed with Dr. Cornejo. The impression and plan of care have been directed as dictated.
[2019-03-28] MEDS ORDERED: FERROUS SULFATE 325 MG TAB PO SCH (12:15)
[2019-03-28] MEDS: HYDROcodone/APAP 7.5-325MG 1 EACH TAB PO PRN (13:05)
[2019-03-28 13:19] VITALS: BP 161/72; PULSE 74; RESP 18
--- NOTE | 2019-03-29 11:27 | CDI ---
PPDocumentation Clarification Form Date: 03/29/2019 From: Magdalena Campos Phone: If questions call Alycia Park @ [phone], Hours-8:30 am & 5 pm MDaysi Rojas Admit Date: 03/25/2019 4:47:00 PM Patient Name: Andrew Jung Visit Number: [id number] Discharge Date: 03/28/2019 3:06:00 PM ATTENTION: The Clinical Documentation Specialists (CDI) and [facility] Coding Staff appreciate your assistance in clarifying documentation. Please respond to the clarification below the line at the bottom and electronically sign. The CDI & [facility] Coding staff will review the response and follow-up if needed. Please note: Queries are made part of the Legal Health Record. If you have any questions, please contact the author of this message via ITS. Dr. Brokolyn Haines CHF is documented in the ED note. Heart failure is documented in CXR and Echo as referral reason. History/Risk Factors: DM, emphysema, pneumonia, VS/Pulse OX: t-97.9, P-79, R-16, BP-155/66, O2 sat-91 BNP: 1680 Echocardiogram Results: left ventricular systolic function is mild-moderately impaired w an EF between 40-45% Chest X Ray: Multifocal abnormal densities, correlate for pneumonia, CHF. Prominence of the right hilum persists. Treatment: IV Lasix 40 mg Q 12H In your professional opinion, can you please clarify the acuity and type of CHF if known? TYPE Systolic Heart Failure Diastolic Heart Failure Systolic & Diastolic Heart Failure ACUITY Acute Chronic Acute on Chronic Heart Failure Unable to Determine Other, please specify Per [employer] phone message-No CHF. Pneumonia as stated in cardiology prog note & consult. LM/DB 04/11/19 JAN
--- NOTE | 2019-03-29 22:39 | P.DS ---
Providers Date of admission: 03/25/19 16:47 Expected date of discharge: 03/29/19 Attending physician: Meliton Zurita Consults: 03/25/19 16:47 Consult Physician Routine Consulting Provider: [place] Consult Reason/Comments: cp Do you want consulting provider notified?: Yes 03/27/19 11:17 Consult Physician Routine Consulting Provider: Manas Cornejo Consult Reason/Comments: low hgb, unknown cause Do you want consulting provider notified?: Yes [facility] Course: discharge diagnosis: -Acute COPD exacerbation in ex-smoker having failed outpatient treatment -Probable pneumonia having failed outpatient treatment, suspected gram-negative organism, doing better -Coronary artery disease with a prior history of coronary bypass 3 vessels in 2002 - -diabetes mellitus type 2 on oral hypoglycemic GERD Hyperlipidemia Essential hypertension Primary osteoarthritis -Bashir's esophagus -Hiatal hernia -Iron deficiency anemia. Cause unknown. GI we'll follow as outpatient Interval history: This is a pleasant 73-year-old patient who follows with Dr. Orona. Chronic stable medical conditions include coronary artery disease, diabetes, GERD, hypertension, hyperlipidemia, osteoarthritis but is esophagus hiatal hernia and peptic ulcer disease. Patient felt to be set being short of breath with some yellow sputum no fever or chills, wheezing no edema. Patient did see Dr. Aguilar did receive a course of antibiotic do not get any better. Symptoms have persisted. Decided to come in. This no chest pain or palpitation. doing much better with time of discharge. Seen by GI. They'll follow up as an outpatient. Care was discussed with the patient. discussion discharge planning would and 35 minutes consultation: Dr. JOSE Haines from cardiology Dr. Melody sandoval from gastroenterology Physical examination: VITAL SIGNS: 97.8, 83, 18, 161/72, 99% room GENERAL: Sitting up in a chair comfortable Feeling better. EYES: Pupils equal. Conjunctiva normal. HEENT: External appearance of nose and ears normal, oral cavity grossly normal. NECK: JVD not raised; masses not palpable. HEART: First and second heart sounds are normal; no edema. LUNGS: Respiratory rate increased, decreased breath sounds improving air entry. ABDOMEN: Soft, nontender, liver spleen not palpable, no masses palpable. PSYCH: [Alert and oriented x3; mood and affect anxious l. Investigations: Reviewed in the clinical context White count 5.7, hemoglobin 7.6, potassium 5, BUN 15, creatinine 1.13 Ferritin 10.7iron saturation 3.08 disposition: Home Patient Condition at Discharge: Stable Plan - Discharge Summary New Discharge Prescriptions: New Ferrous Sulfate [Iron (65 MG Elemental)] 325 mg PO BID-W/MEALS tab Cefdinir [Omnicef] 300 mg PO BID #4 cap Continue Hydrocodone/Acetaminophen [Hydrocodone/Acetaminophen 7.5-325] 1 tab PO DAILY PRN PRN Reason: Pain Omeprazole [PriLOSEC] 20 mg PO AC-BRKFST Aspirin EC [Ecotrin Low Dose] 81 mg PO DAILY Atorvastatin [Lipitor] 20 mg PO HS Ipratropium/Albuterol Sulfate [Combivent Respimat Inhaler] 1 puff INHALATION RT-QID PRN PRN Reason: Dyspnea Ranitidine HCl [Zantac] 150 mg PO BID Ipratropium-Albuterol Nebulize [Duoneb 0.5 mg-3 mg/3 ml Soln] 3 ml INHALATION RT-QID Metoprolol Tartrate [Lopressor] 12.5 mg PO BID amLODIPine [Norvasc] 5 mg PO DAILY Insulin Detemir (Levemir) [Levemir] 25 unit SQ QAM metFORMIN HCL 500 mg PO BID No Action Hydrochlorothiazide [Hydrodiuril] 25 mg PO DAILY Discharge Medication List Aspirin EC [Ecotrin Low Dose] 81 mg PO DAILY 02/03/14 [History] Atorvastatin [Lipitor] 20 mg PO HS 02/03/14 [History] Hydrocodone/Acetaminophen [Hydrocodone/Acetaminophen 7.5-325] 1 tab PO DAILY PRN 02/03/14 [History] Omeprazole [PriLOSEC] 20 mg PO AC-BRKFST 02/03/14 [History] Ipratropium/Albuterol Sulfate [Combivent Respimat Inhaler] 1 puff INHALATION RT- QID PRN 02/05/14 [History] Ipratropium-Albuterol Nebulize [Duoneb 0.5 mg-3 mg/3 ml Soln] 3 ml INHALATION RT-QID 05/02/16 [History] Ranitidine HCl [Zantac] 150 mg PO BID 05/02/16 [History] Metoprolol Tartrate [Lopressor] 12.5 mg PO BID 09/27/16 [History] amLODIPine [Norvasc] 5 mg PO DAILY 10/21/16 [History] Insulin Detemir (Levemir) [Levemir] 25 unit SQ QAM 03/27/18 [History] Hydrochlorothiazide [Hydrodiuril] 25 mg PO DAILY 03/25/19 [History] metFORMIN HCL 500 mg PO BID 03/25/19 [History] Cefdinir [Omnicef] 300 mg PO BID #4 cap 03/28/19 [Rx] Ferrous Sulfate [Iron (65 MG Elemental)] 325 mg PO BID-W/MEALS tab 03/28/19 [Rx] Follow up Appointment(s)/Referral(s): Aly Reynlods MD [Primary Care Provider] - 03/29/19 11:40 am (Monday -only available appointment) Demetrio Aguilar DO [Doctor of Osteopathic Medicine] - 04/25/19 1:45 pm () Johanna Ramos PAC [REFERRING] - 04/08/19 8:00 am (Monday) Patient Instructions/Handouts: Pneumonia (DC), Chronic Lung Disease and Infection Prevention (DC) Activity/Diet/Wound Care/Special Instructions: CBC-in 3-5 days. Bring prescription Discharge Disposition: HOME SELF-CARE
== END 2019-03-28 15:06 | disposition home or self-care (01) | DRG 179 ==
LOC: EC 13:52 → 3SCARD 16:47
PROVIDERS: ADMIT Hospitalist; ATTEND Hospitalist
DX: J15.6 Pneumonia due to other Gram-negative bacteria (principal); E11.51 Type 2 diabetes mellitus with diabetic peripheral angiopathy without gangrene; I44.7 Left bundle-branch block, unspecified; I10 Essential (primary) hypertension; J43.9 Emphysema, unspecified; E78.5 Hyperlipidemia, unspecified; M19.91 Primary osteoarthritis, unspecified site; K21.9 Gastro-esophageal reflux disease without esophagitis; D50.9 Iron deficiency anemia, unspecified; E83.42 Hypomagnesemia; I25.2 Old myocardial infarction; I25.10 Atherosclerotic heart disease of native coronary artery without angina pectoris; K44.9 Diaphragmatic hernia without obstruction or gangrene; K22.70 Barrett's esophagus without dysplasia; J45.909 Unspecified asthma, uncomplicated; Z79.82 Long term (current) use of aspirin; Z79.4 Long term (current) use of insulin; Z79.899 Other long term (current) drug therapy; Z87.891 Personal history of nicotine dependence; Z86.73 Personal history of transient ischemic attack (TIA), and cerebral infarction without residual deficits; Z85.46 Personal history of malignant neoplasm of prostate; Z87.11 Personal history of peptic ulcer disease; Z90.49 Acquired absence of other specified parts of digestive tract; Z95.1 Presence of aortocoronary bypass graft; Z98.890 Other specified postprocedural states; Z90.79 Acquired absence of other genital organ(s); Z86.010 Personal history of colon polyps; Z95.828 Presence of other vascular implants and grafts; Z98.42 Cataract extraction status, left eye; Z98.41 Cataract extraction status, right eye; Z88.0 Allergy status to penicillin; Z88.2 Allergy status to sulfonamides; Z88.8 Allergy status to other drugs, medicaments and biological substances; Z80.8 Family history of malignant neoplasm of other organs or systems; Z82.3 Family history of stroke; Z80.42 Family history of malignant neoplasm of prostate; Z84.89 Family history of other specified conditions
CPT/HCPCS: 36415; 71046; 80048; 80053; 82272; 82728; 83540; 83550; 83735; 83880; 84145; 84484; 85025; 85610; 85730; 87040; 87070; 87205; 93005; 93306; 94640; 94760; 96361; 96365; 96366; 96367; 96375; 99285

== ENCOUNTER 2021-03-24 09:52 | Day surgery (SDC) | payer MEDICARE, OTHER ==
[2021-03-22 10:45] VITALS: BMI 25.8
[~2021-03-24 09:52] MED LIST changes: +ASPIRIN 325 MG TAB PO PRN; -ASPIRIN 325 MG TAB PO STA; -SODIUM CHLORIDE 0.9% 1,000 ML in EMPTY BAG 1 BAG IV ONE
[2021-03-24] MEDS ORDERED: ASPIRIN 81 MG ONE (10:26)
[2021-03-24 10:34] LABS: Glucose,Whole Blood 203 mg/dL (75-99)
[2021-03-24] MEDS ORDERED: SODIUM CHLORIDE 0.9% 1,000 ML IV ONE (10:35)
[2021-03-24] MEDS ORDERED: INSULIN ASPART (NovoLOG) 100 UNIT/ML VIAL SQ ONE (10:45)
[2021-03-24] MEDS ORDERED: SODIUM CHLORIDE 0.9% 1,000 ML in EMPTY BAG 1 BAG IV ONE (11:30)
[2021-03-24] MEDS ORDERED: SODIUM CHLORIDE 0.9% 500 ML 500 ML with niCARdipine 6.25 MG, NITROGLYCERIN-D5W PMX 0.05... IV STA ×4 (13:13)
[2021-03-24] MEDS ORDERED: HYDROmorphone 0.5 MG/0.5 ML SYRINGE IVP ONE (13:19)
[2021-03-24] MEDS ORDERED: MIDAZOLAM 2 MG/2 ML VIAL IVP ONE (13:19)
[2021-03-24] MEDS: HEPARIN SODIUM 1,000 UN/ML (10ML VL) IV ONE ×2 (13:32→14:09)
[2021-03-24] MEDS: MIDAZOLAM 2 MG/2 ML VIAL IVP ONE ×2 (13:48→14:06)
[2021-03-24] MEDS ORDERED: IOPAMIDOL-250 100ML BTL INTRAARTER ONE (14:33)
[2021-03-24] MEDS ORDERED: HYDROcodone/APAP 7.5-325MG 1 EACH TAB PO PRN (14:44)
[2021-03-24] MEDS ORDERED: IPRATROPIUM-ALBUTEROL 3 ML NEB INHALATION PRN (14:44)
[2021-03-24] MEDS ORDERED: SODIUM CHLORIDE 0.9% 1,000 ML in EMPTY BAG 1 BAG IV SCH (14:45)
[2021-03-24] MEDS ORDERED: CLOPIDOGREL 75 MG TAB PO ONE (14:46)
--- NOTE | 2021-03-24 15:20 | IR ---
Fluoroscopy HISTORY: Peripheral vascular occlusive disease 22.9 minutes fluoroscopy time supplied to the referring clinician. 538 intraoperative C-arm images d ocument the procedure. See dictated report from cardiology.
[2021-03-24] MEDS: HYDROmorphone 0.5 MG/0.5 ML SYRINGE IVP PRN ×2 (15:32→22:55)
[2021-03-24 16:56] LABS: Glucose,Whole Blood 150 mg/dL (75-99)
--- NOTE | 2021-03-24 17:07 | LTR ---
DATE OF SERVICE: 03/24/[address] Reynolds: Mr. Andrew Jung underwent today successful balloon angioplasty and stenting of the right iliac artery with good angiographic results and without any complication. A full report of the procedure was sent to you. Thank you for allowing me to participate in his care. Please do not hesitate to call if any questions or concerns. Sincerely, Werner Woo MD MMODL / HIMANSHUN: [id number] /
[2021-03-24] MEDS: IPRATROPIUM-ALBUTEROL 3 ML NEB INHALATION SCH ×3 (17:09→19:48)
[2021-03-24] MEDS ORDERED: ATROPINE SULFATE 0.1 MG/ML 10ML SYRINGE ONE (17:45)
[2021-03-24 20:11] LABS: Glucose,Whole Blood 162 mg/dL (75-99)
[2021-03-24] MEDS: METOPROLOL TARTRATE 12.5 MG TAB PO SCH (20:44)
[2021-03-24] MEDS ORDERED: FAMOTIDINE 20 MG TAB PO SCH (21:00)
[2021-03-24] MEDS ORDERED: ATORVASTATIN 20 MG TAB PO SCH (21:00)
[2021-03-25 05:06] VITALS: RESP 18; TEMP 97.1
[2021-03-25 06:13] LABS: Glucose,Whole Blood 200 mg/dL (75-99)
[2021-03-25] MEDS ORDERED: INSULIN DETEMIR (LEVEMIR) 100 UNIT/ML SYR SQ SCH (07:00)
[2021-03-25] MEDS ORDERED: PANTOPRAZOLE 40 MG TABLET PO SCH (07:30)
[2021-03-25] MEDS: IPRATROPIUM-ALBUTEROL 3 ML NEB INHALATION SCH (07:31)
[2021-03-25 07:47] LABS: Basophils % (A) 1 %; Eosinophils # (A) 0.1 k/uL (0-0.7); Eosinophils % (A) 2 %; HCT 36.5 % (39.0-53.0); HGB 12.1 gm/dL (13.0-17.5); Lymphocytes # (A) 1.5 k/uL (1.0-4.8); Lymphocytes % (A) 21 %; MCH 28.8 pg (25.0-35.0); MCHC 33.1 g/dL (31.0-37.0); MCV 86.8 fL (80.0-100.0); Mean Platelet Volume 7.6; Monocytes # (A) 0.6 k/uL (0-1.0); Monocytes % (A) 8 %; Neutrophils # (A) 4.8 k/uL (1.3-7.7); Neutrophils % (A) 67 %; Platelet Count 229 k/uL (150-450); RBC 4.21 m/uL (4.30-5.90); RDW 13.1 % (11.5-15.5); WBC 7.2 k/uL (3.8-10.6)
[2021-03-25 07:59] LABS: African American GFR (CKD) >90 (>60 ml/min/1.73 sqM); Anion Gap 6 mmol/L; Blood Urea Nitrogen 12 mg/dL (9-20); Calcium 10.2 mg/dL (8.4-10.2); Carbon Dioxide 27 mmol/L (22-30); Chloride 103 mmol/L (98-107); Glucose 184 mg/dL (74-99); Non-African American GFR(CKD) 83 (>60 ml/min/1.73 sqM); Potassium 5.1 mmol/L (3.5-5.1); Sodium 136 mmol/L (137-145)
[2021-03-25] MEDS ORDERED: amLODIPine 5 MG TAB PO SCH (09:00)
[2021-03-25] MEDS ORDERED: ASPIRIN 81 MG PO SCH (09:00)
[2021-03-25] MEDS: METOPROLOL TARTRATE 12.5 MG TAB PO SCH (09:10)
[2021-03-25 09:54] VITALS: BP 170/55; PULSE 78
--- NOTE | 2021-03-25 12:23 | DS ---
DISCHARGE SUMMARY ADMISSION DATE: March 24, 2021. DISCHARGE DATE: March 25, 2021 BRIEF HISTORY: This is a 75-year-old gentleman who sees Dr. Hill regularly with peripheral arterial disease who was experiencing bilateral lower extremities intermittent claudication, worse on the right side than the left side. The discomfort was interfering with his daily activities. He underwent an angiogram which revealed occluded right external iliac artery and severe disease involving the left common femoral artery. Because he was more symptomatic on the right side than the left side, he underwent yesterday successful recanalizing, chronically occluded right external iliac artery with an excellent angiographic results and without any complication from right groin approach. He was seen this morning. The right groin is soft and nontender and without any bruises. The right foot is warm as well. The patient is going to be discharged on dual anti-platelet therapy to follow up with Dr. Hill in the office in a week. He needs to have lower extremities arterial duplex study in 3 months. MMODL / HIMANSHUN: [id number] /
--- NOTE | 2021-03-25 15:03 | AN ---
ANGIOGRAPHY REPORT DATE OF SERVICE: 03/24/2021 PERFORMING PHYSICIAN: Werner Woo MD. PROCEDURE PERFORMED: 1. Successful stenting of the right external iliac artery using proximally 8.0 x 59 mm balloon expandable stent and 8.0 x 100 mm self-expandable stent with an excellent angiographic results and reduction of stenosis from 100% to 0%. 2. Atherectomy of the right common femoral artery. 3. Successful balloon angioplasty of the right common femoral artery using 6 mm Chocolate balloon with an excellent angiographic result. 4. Intravascular ultrasound (IVUS) of the right common and right external and right common iliac arteries. 5. Selective right common and right external iliac and right common femoral arteries angiogram. INDICATION: This is a very pleasant 75-year-old gentleman who sees Dr. Hill in the office, who was experiencing bilateral lower extremity intermittent claudication, worse on the right side than the left side. He underwent an angiogram which revealed severe disease involving the left common femoral artery and occluded right iliac artery. His symptom of intermittent claudication was worse on the right than the left, and because of that he was brought today to undergo an intervention on the right iliac. COMPLICATION: None. LEVEL OF SEDATION: Moderate with sedation length of 1 hour and 18 minutes. APPROACH: Right common femoral artery. PROCEDURE DESCRIPTION: After obtaining an informed consent, the patient was brought to the cardiac lab courier. Under ultrasound guidance, the right common femoral artery was cannulated using micropuncture technique. The micropuncture wire passed easily. Then, I placed a 23 cm 6-English right tip sheath at the right common femoral artery. After that anticoagulation was initiated using heparin and the patient was given weight- based heparin with continuous ACT monitoring throughout the procedure. After that I did cross the PHYSICIAN RELATIONS REPRESENTATIVE of the right iliac artery using 0.035 stiff Glidewire with the backup support of 0.035 CXI catheter. I proved that I was in the true lumen with injecting contrast via the catheter. INTRAVASCULAR ULTRASOUND OF THE RIGHT COMMON AND RIGHT EXTERNAL ILIAC AND RIGHT COMMON FEMORAL ARTERIES: I proved that I was in the true lumen. After that, balloon angioplasty was achieved using initially 6 mm balloon. For the right external iliac artery, I deployed 2 stents. The first one was 8 x 59 mm and the second one was 8 x 100 mm. The first one was balloon expandable and the second was self expandable. I postdilated both stents using 8 mm balloon. For the right common femoral artery, I did balloon angioplasty using 6 mm Chocolate balloon. Final angiogram showed excellent angiographic results and the procedure was completed without any complication. POSTPROCEDURE MANAGEMENT: 1. Dual antiplatelet therapy. 2. Risk factor modifications. MARY / CATHY: [id number] /
== END 2021-03-25 10:42 | disposition home or self-care (01) ==
LOC: CATHCVL 09:52 → 3SCARD 15:32 → CATHCVL 03-25 10:42
PROVIDERS: ATTEND Internal Medicine Interventional Cardiology
DX: I70.213 Atherosclerosis of native arteries of extremities with intermittent claudication, bilateral legs (principal); E11.51 Type 2 diabetes mellitus with diabetic peripheral angiopathy without gangrene; I10 Essential (primary) hypertension; I25.10 Atherosclerotic heart disease of native coronary artery without angina pectoris; I70.92 Chronic total occlusion of artery of the extremities; Z82.49 Family history of ischemic heart disease and other diseases of the circulatory system; I08.1 Rheumatic disorders of both mitral and tricuspid valves; I44.7 Left bundle-branch block, unspecified; I65.23 Occlusion and stenosis of bilateral carotid arteries; Z79.899 Other long term (current) drug therapy; Z79.82 Long term (current) use of aspirin; Z88.0 Allergy status to penicillin; Z88.2 Allergy status to sulfonamides; Z88.8 Allergy status to other drugs, medicaments and biological substances; I25.5 Ischemic cardiomyopathy; E78.2 Mixed hyperlipidemia; Z95.1 Presence of aortocoronary bypass graft; Z20.822 Contact with and (suspected) exposure to COVID-19
CPT/HCPCS: 94640; 37221; 37224; 37252; 37253; 80048; 85025; 87635; C1769 ×7; C1894 ×2; C1725 ×3; C1876 ×2; C1714; C1753; J2250; J1644; J1170; Q9966; 37223

== ENCOUNTER → 2021-04-01 | Outpatient (CLI) | payer MEDICARE, OTHER ==
--- NOTE | 2021-04-02 09:37 | CT ---
EXAMINATION TYPE: CT angio abdomen pelvis DATE OF EXAM: 04/01/2021 COMPARISON: None HISTORY: Non-traumatic hematoma of soft tissue. Pt last day had stents placed lower abdomen. Murray s been in pain since CT DLP: 951 mGycm CONTRAST: CTA thoracic and abdominal aorta with 3-D reconstruction is performed without Oral Contrast and with IV Contrast, patient injected with 100 mL of Isovue 370. Contrast CTA of the abdominal aorta was performed from the lung bases through the base of the pelvis. 3-D reconstruction imaging obtained at a separate workstation. CONTRAST CT ABDOMEN AND PELVIS ABDOMINAL AORTA: There is extensive plaque formation seen of the abdominal aorta with short segment c hronic dissection suggested. No evidence for abdominal aortic aneurysm. Branch vessels are patent. Th ere is placement of right common iliac artery stent as well as right external iliac artery stent. The re is a focal outpouching noted at the right external iliac artery measuring 1.7 cm which is felt to reflect a pseudoaneurysm. Adjacent to the pseudoaneurysm is an area of hemorrhage anterior to the pso as musculature measuring approximately 5.1 x 6.7 x 4.9 cm. No active hemorrhage is identified at this time. Atheromatous changes of the left common iliac artery as well as internal and external branches which appear patent. LIVER/GB- No significant abnormality is seen. Cholecystectomy clips are in place. PANCREAS- No significant abnormality is seen. SPLEEN- No significant abnormality is seen. ADRENALS- No significant abnormality is seen. KIDNEYS/BLADDER- No significant abnormality is seen. BOWEL-moderate hiatal hernia seen. GENITAL ORGANS: No gross abnormality seen. LYMPH NODES- No greater than 1cm abdominal or pelvic lymph nodes areappreciated. OSSEOUS STRUCTURES- No significant abnormality is seen. OTHER- No significant abnormality is seen. IMPRESSION- 1. 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 There is adjacent area of hemorrhage as discussed above without active extravasation at this time
== END | disposition home or self-care (01) ==
LOC: RADCTMAIN 15:08
PROVIDERS: ATTEND Internal Medicine Interventional Cardiology
DX: M96.89 Other intraoperative and postprocedural complications and disorders of the musculoskeletal system (principal)
CPT/HCPCS: 82565; 84520; 36415; 74174; Q9967